=== PATIENT | female | born 1970 | race Caucasian/White ===

== ENCOUNTER 2024-07-22 13:07 | Emergency (ER) | payer BC, SELFPAY ==
--- OUTSIDE RECORDS SUMMARY | 2024-07-22 13:09 | XMS_ITS | Encounter Summary ---
Author Organization [email or web address] [facility] Address [address] [place] [address] Care Team Providers Care Computational Mathematician Name Role Phone Aneesh Lemons MD Primary Care Provider Encounter Details Date Type Department Care Team (Late st Contact Info) Description 10/11/2006 Outpatient Historical HIS N ALIS OPHIR Aneesh Dennis MD [address] [place] [address] Social History Tobacco Use Types Packs/Day Years Used Date Smoking Tobacco: Never Assessed Comments Unknown Sex and Gender Information Value Date Recorded Sex Assigned at Not on file Legal Sex Female 3:10 AM PATHOLOGY SECRETARY/TRANSCRIPTIONIST Gender Identity Not on file Sexual Orientation Not on file documented as of this encounter Plan of Treatment Not on file documented as of this encounter Visit Diagnoses Not on filedocumented in this encounter Care Teams Computational Mathematician Relationship Specialty Start Date End Date Aneesh Lemons MD [address] [place] [address] PCP - General 03/27/08 documented as of this encounter
--- OUTSIDE RECORDS SUMMARY | 2024-07-22 13:09 | XMS_ITS | Encounter Summary ---
Author Organization [facility] Address [address] [place] [address] Care Team Providers Care Public Information Coordinator Name Role Phone Aneesh Lemons MD Primary Care Provider [phone] Encounter Details Date Type Department Care Team (Late st Contact Info) Description 03/27/2008 Inpatient Historical HIS QUAD 4B Armando Dillard MD [address] [facility] [address] [place], [place] [id number] [place] [address] [facility] [address] [place] [address] Social History Tobacco Use Types Packs/Day Years Used Date Smoking Tobacco: Never Assessed Comments No Sex and Gender Information Value Date Recorded Sex Assigned at Not on file Legal Sex Female 3:10 AM BOILER COVERER Gender Identity Not on file Sexual Orientation Not on file documented as of this encounter Plan of Treatment Not on file documented as of this encounter Procedures Procedure Name Priority Date/Time Associated Diagnosis Comments PATHOLOGY Routine 03/28/2008 9:08 AM BOILER COVERER RBC MORPHOLOGY Routine 03/28/2008 5:25 AM BOILER COVERER CBC WITH DIFFERENTIAL Routine 03/28/2008 5:25 AM BOILER COVERER LIPASE Routine 03/27/2008 12:05 PM BOILER COVERER COMPREHENSIVE METABOLIC PANEL Routine 03/27/2008 12:[address] ABDOMEN PELVIS W CONTRAST Routine 03/27/2008 11:40 AM BOILER COVERER URINALYSIS WITH REFLEX CULTURE Routine 03/27/2008 11:20 AM BOILER COVERER CBC WITH DIFFERENTIAL Routine 03/27/2008 10:39 AM BOILER COVERER documented in this encounter Results * PATHOLOGY (03/28/2008 9:08 AM BOILER COVERER) Pathologist [facility] SURGICAL PATHOLOGY [facility] Pathology [address] * [place] [address] fax: [phone] Salvatore Voss MD * Gabriele Dow MD * MD Jazmin Umana MD * Al Logan MD * Jamie Bella MD Name: STEPHANIELUIS FERNANDO Karen Age/Sex: 38/F Attend Dr: Abby Macedo MD Unit#: [id number] Status: DIS IN Location: [facility] M428-1 Re03/27/08 Disch: 03/28/08 Received: 03/28/08 Status: TENZIN Ellison#: [id number] Spec #: [id number] Spec Type: SURGICAL P Subm Dr: Abby Macedo MD FINAL DIAGNOSIS VERMIFORM APPENDIX (APPENDECTOMY): - ACUTE PERIAPPENDICITIS WITH FIBROUS SEROSAL ADHESIONS. - NEGATIVE FOR ACUTE APPENDICITIS. TISSUES: A. - APPENDIX OTHER THAN INCIDENTAL [id number] - APPENDIX CLINICAL INFORMATION: PRE-OP DIAGNOSIS/REASON FOR PROCEDURE: APPENDICITIS/ABDOMI NAL PAIN GROSS DESCRIPTION: The specimen is received in formalin labeled with the patient's name and appendix, and consists of a vermiform appendix measuring 6.3 x 0.9 cm. There is a moderate amount of attached yellow-cronin to hemorrhagic, somewhat indurated mesoappendix present. On cut section, the lumen is noted for hemorrhagic debris. No fecoliths are identified. Electric Meter Reader sections will be submitted in one cassette. am/tw MICROSCOPIC DESCRIPTION: Sections show acute periappendicitis with serosal adhesions. No intraluminal or intramural inflammation is observed. Dictated by: JAMIE BELLA MD Signed <<Signature On File>> JAMIE BELLA MD 03/29/08 END OF REPORT [facility] 03/28/2008 9:08 AM BOILER COVERER 03/28/2008 9:07 AM BOILER COVERER us Abby Macedo MD PATHOLOGY/CYTOLOGY ORDERA BLES Final Result Performing Organization Address City/[facility] de Phone Number INTERFACE SYSTEM Refer to clinic/hospital department [facility] CLIA# [id number] [address] [id number] * RBC MORPHOLOGY (03/28/2008 5:25 AM BOILER COVERER) RBC MORPHOLOGY Normal NORMAL [facility] PLATELET EST. Adequate [facility] 03/28/2008 5:25 AM BOILER COVERER 03/28/2008 5:54 AM BOILER COVERER us Abby Macedo MD HEMATOLOGY ORDERABLES Fin al Result Performing Organization Address [facility] Phone Number INTERFACE SYSTEM Refer to clinic/hospital department [facility] CLIA# [id number] [address] [place] [address] * CBC WITH DIFFERENTIAL (03/28/2008 5:25 AM BOILER COVERER) BANDS 2 0 - 6 % [facility] MONOCYTE 2 0 - 8 % [facility] EOSINOPHILS 0 0 - 6 % [facility] BASOPHILS 0 0 - 1 % [facility] PLATELET EST. Adequate [facility] 03/28/2008 5:25 AM BOILER COVERER 03/28/2008 5:54 AM BOILER COVERER us Abby Macedo MD HEMATOLOGY ORDERABLES Kb chuy Performing Organization Address [facility] de Phone Number INTERFACE SYSTEM Refer to clinic/hospital department [facility] CLIA# [id number] [address] [place] [address] * LIPASE (03/27/2008 12:05 PM BOILER COVERER) LIPASE 24 5 - 51 U/L [facility] 03/27/2008 12:0 5 PM BOILER COVERER 03/27/2008 12:11 PM BOILER COVERER us Parish Gresham MD CHEMISTRY ORDERABLES Final R esult INTERFACE SYSTEM Refer to clinic/hospital department [facility] CLIA# [id number] [address] [place] [address] * (ABNORMAL) COMPREHENSIVE METABOLIC PANEL (03/27/2008 12:05 PM BOILER COVERER) SODIUM 136(L) 137 - 145 mmol/L [facility] POTASSIUM 4.4 3.6 - 5.0 mmol/L [facility] CHLORIDE 105 95 - 110 mmol/L [facility] CO2 26.3 20 - 31 mmol/L [facility] ANION GAP 5 0 - 12 [facility] BUN 9 6 - 20 mg/dL [facility] CREATININE 0.7 0.6 - 1.3 mg/dL [facility] GLUCOSE 94 70 - 110 mg/dL [facility] GFR GT 60 mL/min [facility] GFR, GT 60 mL/min [facility] Comment: *eGFR Units = mL/min/1.73 sq. meters Chronic Kidney Disease = <60 Kidney Failure = <15 *eGFR = Estimated Glomerular Filtration Rate Please note: - This estimated GFR is not recommended for use in patients less than 18 years or greater than 70 years old. - The eGFR is not intended for use in the calculation of drug dosage. - Interpretation of this data for patients of has not been established. TOTAL PROTEIN 7.0 6.2 - 8.3 gm/dL [facility] ALBUMIN 4.3 3.5 - 5.0 gm/dL [facility] CALCIUM 9.0 8.2 - 10.3 mg/dL [facility] BILIRUBIN TOTAL 0.4 0.0 - 1.5 mg/dL [facility] ALKALINE PHOSPHATASE 48 34 - 132 U/L [facility] AST 17 3 - 45 U/L [facility] ALT 15 7 - 40 U/L [facility] HEMOLYSIS None No Hemo [facility] LIPEMIA None No Lipemia [facility] ICTERUS None No Icteric [facility] 03/27/2008 12:0 5 PM BOILER COVERER 03/27/2008 12:11 PM BOILER COVERER Parish Gresham MD CHEMISTRY ORDERABLES Final R esult INTERFACE SYSTEM Refer to clinic/hospital department [facility] CLIA# [id number] [address] [place] [address] * CT ABDOMEN PELVIS W CONTRAST (03/27/2008 11:40 AM BOILER COVERER) Anatomical Region Laterality Modality Abdomen Other 03/27/2008 11:4 0 AM BOILER COVERER Narrative 03/27/2008 11:40 AM BOILER COVERER Name: STEPHANIELUIS FERNANDO Phys: GEOFF IYER/Radha GUTIERREZ : 1970 Age: 38 Sex: F Acct: [id number] [place] [facility] [place]am Date: 03/27/2008 Exam Time: 1135 Status: REG ER Radiology No: Unit No: [id number] Patient Phone No: [phone] EXAMS: [id number] APPY PROT/CT ABD/PEL WI CONTR Clinical Data: ABDOMINAL PAIN/SENT BY CT ABDOMEN AND PELVIS Scans were obtained from the lower thorax through the lower pelvis. The patient was given intravenous and rectal contrast. There is stranding seen adjacent to the distal aspect of the appendix. There also is some mild distention measuring 8.5 mm. Findings are suggestive of early acute appendicitis. The liver, pancreas, and spleen are normal. The kidneys are functioning bilaterally without mass or obstruction. Identified is a structure in the left pelvis measuring 3.5 x 2.3 cm, most likely representing a left ovary. Clinical correlation. There appears to be an associated partially collapsed cyst. If the left ovary has been removed, the exact etiology of the soft tissue structures is unclear and warrants further investigation. REPORT SIGNED IN OTHER VENDOR SYSTEM 03/27/2008 Reported By: ABBY LAIRD M.D. CC: Radha TELLEZ RNCNS Dictated Date/Time: Transcribed Date/Time: 03/27/2008 (2943) Civil Celebrant: YOU BARAKAT Printed Date/Time: 03/27/2008 (8727) PAGE 1 Signed Report Procedure Note Provider, Historical - 03/27/2008 Name: LUIS FERNANDO BROWN Phys: GEOFF RN/ALEXANDER GUTIERREZ : 1970 Age: 38Sex: F Acct: [id number] [place] [facility] [place]am Date: 03/27/2008 Exam Time:1135 Status: REG ER Radiology No: Unit No: [id number] Patient Phone No: [phone] EXAMS: [id number] APPY PROT/CT ABD/PEL WI CONTR Clinical Data: ABDOMINAL PAIN/SENT BY CT ABDOMEN AND PELVIS Scans were obtained from the lower thorax through the lowerpelvis. The patient was given intravenous and rectal contrast. There is stranding seen adjacent to the distal aspect of theappendix. There also is some mild distention measuring 8.5 mm. Findingsare suggestive of early acute appendicitis. The liver, pancreas, and spleen are normal. The kidneys are functioning bilaterally without mass orobstruction. Identified is a structure in the left pelvis measuring 3.5 x 2.3cm, most likely representing a left ovary. Clinical correlation.There appears to be an associated partially collapsed cyst. If the left ovary has been removed, the exact etiology of thesoft tissue structures is unclear and warrants furtherinvestigation. REPORT SIGNED IN OTHER VENDOR SYSTEM 03/27/2008 Reported By: ABBY LAIRD M.D. CC: Radha TELLEZ RNCNS Dictated Date/Time: Transcribed Date/Time: 03/27/2008 (8573) Civil Celebrant: YOU BARAKAT Printed Date/Time: 03/27/2008 (7932) PAGE 1 Signed Report Radha Tellez CT ORDERABLES Final Result * (ABNORMAL) URINALYSIS WITH REFLEX CULTURE (03/27/2008 11:20 AM BOILER COVERER) COLOR UA Yellow [facility] CLARITY UA Clear [facility] SPECIFIC GRAVITY UA 1.018 1.001 - 1.035 [facility] PH UA 5.0 4.6 - 8.0 [facility] PROTEIN UA Negative Negative mg/dL [facility] GLUCOSE UA Negative Negative mg/dL [facility] KETONES UA Negative Negative mg/dL [facility] BILIRUBIN UA Negative Negative mg/dL [facility] BLOOD UA Negative Negative mg/dL [facility] UROBILINOGEN UA Normal 0.1 - 1.0 mg/dL [facility] NITRITE UA Negative Negative [facility] LEUKOCYTE ESTERASE UA Negative Negative [facility] RBC UA 0-3 0 - 2 /HPF [facility] WBC UA 0-3 0 - 6 /HPF [facility] EPITHELIAL CELLS, URINE 0-5 /HPF [facility] MUCOUS, URINE Rare [facility] BACTERIA UA 2+(A) Neg [facility] URINE CULTURE ORDER No [facility] 03/27/2008 11:2 0 AM BOILER COVERER 03/27/2008 11:36 AM BOILER COVERER Parish Gresham MD URINE ORDERABLES Final Resul t INTERFACE SYSTEM Refer to clinic/hospital department [facility] CLIA# [id number] [address] [facility] [place] [address] * CBC WITH DIFFERENTIAL (03/27/2008 10:39 AM BOILER COVERER) WBC 5.8 4.5 - 11.0 10E3 [facility] RBC 4.94 3.80 - 5.10 10E6 [facility] HEMOGLOBIN 15.1 11.7 - 15.5 g/dL [facility] HEMATOCRIT 42.4 35.0 - 45.0 % [facility] MCV 86 81 - 101 fL [facility] MCH 30.6 27 - 34 pG [facility] MCHC 35.6 32 - 36 g/dL [facility] RDW-STDEV 38.6 37.0 - 54.0 fl [facility] RDW CV 12.5 11 - 16 CV [facility] PLATELETS 248 150 - 450 10E3 [facility] MPV 10.4 8.6 - 11.7 fl [facility] NEUTROPHIL 59 36 - 78 % [facility] LYMPHOCYTES 30 24 - 44 % [facility] MONOCYTE 8 0 - 8 % [facility] EOSINOPHILS 2 0 - 6 % [facility] BASOPHILS 1 0 - 1 % [facility] NEUTROPHIL ABSOLUTE 3.40 1.8 - 7.7 10E3 [facility] LYMPHOCYTE ABSOLUTE 1.74 1.0 - 4.8 E3 [facility] MONOCYTE ABSOLUTE 0.45 0.0 - 0.[address] [place] [address] LAB BASOPHILS ABSOLUTE 0.13 0.0 - 0.7 E3 [facility] EOSINOPHIL ABSOLUTE 0.03 0.0 - 0.2 10E3 [facility] 03/27/2008 10:3 9 AM BOILER COVERER 03/27/2008 10:41 AM BOILER COVERER us Parish Gresham MD HEMATOLOGY ORDERABLES Final Result INTERFACE SYSTEM Refer to clinic/hospital department [facility] CLIA# [id number] [address] [place] [address] documented in this encounter Visit Diagnoses Not on filedocumented in this encounter Care Teams Public Information Coordinator Relationship Specialty Start Date End Date Aneesh Lemons MD [address] [place] [id number] PCP - General 03/27/08 documented as of this encounter
--- OUTSIDE RECORDS SUMMARY | 2024-07-22 13:09 | XMS_ITS | Encounter Summary ---
Author Organization [email or web address] [facility] Address [address] [place] [address] Care Team Providers Care Apprentice Architect Name Role Phone Aneesh Lemons MD Primary Care Provider [phone] Encounter Details Date Type Department Care Team (Late st Contact Info) Description 12/27/2006 Outpatient Historical HIS N ALIS [place] Aneesh Dennis MD [address] [place] [address] Social History Tobacco Use Types Packs/Day Years Used Date Smoking Tobacco: Never Assessed Comments Unknown Sex and Gender Information Value Date Recorded Sex Assigned at Not on file Legal Sex Female 3:10 AM SOFTWARE PERFORMANCE ENGINEER Gender Identity Not on file Sexual Orientation Not on file documented as of this encounter Plan of Treatment Not on file documented as of this encounter Visit Diagnoses Not on filedocumented in this encounter Care Teams Apprentice Architect Relationship Specialty Start Date End Date Aneesh Lemons MD [address] [place] [address] PCP - General 03/27/08 documented as of this encounter
--- OUTSIDE RECORDS SUMMARY | 2024-07-22 13:09 | XMS_ITS | Clinical Summary ---
Author Organization [facility] Address [address] [place] [address] Phone Care Team Providers Care Hyperbaric Nurse Name Role Phone Aneesh Lemons MD Primary Care Provider [phone] Allergies Active Allergy Reactions Criticality Noted Date Comments Meperidine Nausea and Vomiting Low 03/27/2008 Medications omega-3 fatty acids-fish oil 300-1,000 mg Capsule Take by mouth daily. Active ergocalciferol, vitamin D2, (VITAMIN D ORAL) Take by mouth. Activ e Lactobac no.41/Bifidobac t no.7 (PROBIOTIC-10 ORAL) Take by mouth. Activ e diphenhydramine HCl (BENADRYL ALLERGY ORAL) Take by mouth. A ctive phentermine (ADIPEX P) 37.5 mg tabletIndicatio ns:Weight gain TAKE 1 TABLET BY MOUTH ONCE DAILY BEFORE BREAKFAST 30 Tablet 5 1 Active escitalopram oxalate (LEXAPRO) 10 mg tablet TAKE ONE TABLET BY MOUTH ONCE DAILY 30 Tablet 5 1 Active metoprolol succinate (TOPROL XL) 50 mg Extended Release 24 hour tablet Take 1 tablet by mouth once daily 90 Tablet 1 Active Active Problems Problem Noted Date Diagnosed Date HTN (hypertension), benign 09/19/2019 Major depression 07/31/2017 MELY (obstructive sleep apnea) 10/07/2009 Family History Medical History Relation Name Comments Healthy Brother Diabetes Father Hypertension Father Other Mother Other Sister 1 Relation Name Status Comments Brother Father Alive Mother Alive Sister 1 Alive Sister 2 Alive Social History Tobacco Use Types Packs/Day Years Used Date Smoking Tobacco: Never Alcohol Use Standard Drinks/Week Comments No 0 (1 standard drink = 0.6 oz pur e alcohol) Comments No Sex and Gender Information Value Date Recorded Sex Assigned at Not on file Legal Sex Female 3:10 AM SPECIAL PROCEDURE TECHNOLOGIST Gender Identity Not on file Sexual Orientation Not on file Last Filed Vital Signs Vital Sign Reading Time Taken Comments Blood Pressure 132/100 09/19/2019 11:23 AM CDT Pulse 85 09/19/2019 11:23 AM CDT Temperature 37.3 C (99.1 F) 09/19/2019 11:23 AM CDT Respiratory Rate 16 09/19/2019 11:23 AM CDT Oxygen Saturation 96% 09/19/2019 11:23 AM CDT Inhaled Oxygen Concentration - - Weight 105.2 kg (232 lb) 09/19/2019 11:23 AM CDT Height 154.9 cm (5' 1) 09/19/2019 11:23 AM CDT Body Mass Index 43.84 09/19/2019 11:23 AM CDT Plan of Treatment Health Maintenance Due Date Last Done Comments DTAP/TDAP/TD VACCINES (1 - Tdap) 02/23/1988 HEPATITIS B VACCINES (1 of 3 - 19+ 3-dose series) 02/23/1988 COLORECTAL SCREENING 2014 Colorectal Cancer Screening 2014 FIT-DNA Q 3 years 2014 FIT/FOBT Q 1 year 2014 Flex Sig/CT Colonography Q 5 years 2014 ZOSTER VACCINE (1 of 2) 2019 INFLUENZA VACCINE (#1) 2023 02/05/2018 PNEUMOCOCCAL VACCINE 0-49 YEARS Aged Out No longer eligible based on patient's age to complete this topic Care Teams Hyperbaric Nurse Relationship Specialty Start Date End Date Aneesh Lemons MD [address] [place] [id number] PCP - General 03/27/08
--- OUTSIDE RECORDS SUMMARY | 2024-07-22 13:10 | XMS_ITS | Encounter Summary ---
Author Organization [facility] [place] [place] Address [address] [place] [address] Care Team Providers Care Timber Skidder Name Role Phone Aneesh Lemons MD Primary Care Provider [phone] Reason for Visit * Reason Comments Medication Refill Encounter Details Date Type Department Care Team (Late st Contact Info) Description 06/22/2017 Refill [facility] - [facility] [address] [place] [address] Aneesh Lemons MD [address] [place] [address] Social History Tobacco Use Types Packs/Day Years Used Date Smoking Tobacco: Never Alcohol Use Standard Drinks/Week Comments No 0 (1 standard drink = 0.6 oz pur e alcohol) Comments No Sex and Gender Information Value Date Recorded Sex Assigned at Not on file Legal Sex Female 3:10 AM DIRECT SUPPORT STAFF Gender Identity Not on file Sexual Orientation Not on file documented as of this encounter Plan of Treatment Not on file documented as of this encounter Visit Diagnoses Not on filedocumented in this encounter Care Teams Timber Skidder Relationship Specialty [place] [address] [place] [address] PCP - General 03/27/08 documented as of this encounter
--- OUTSIDE RECORDS SUMMARY | 2024-07-22 13:10 | XMS_ITS | Encounter Summary ---
Author Organization [facility] Address [address] [place] [address] Care Team Providers Care Dredge Master Name Role Phone Aneesh Lemons MD Primary Care Provider [phone] Encounter Details Date Type Department Care Team (Late st Contact Info) Description 10/20/2009 Inpatient Historical [facility] Aneesh Lemons MD [address] [place] [address] Social History Tobacco Use Types Packs/Day Years Used Date Smoking Tobacco: Never Alcohol Use Standard Drinks/Week Comments No 0 (1 standard drink = 0.6 oz pur e alcohol) Comments No Sex and Gender Information Value Date Recorded Sex Assigned at Not on file Legal Sex Female 3:10 AM DRAWING SUPERVISOR Gender Identity Not on file Sexual Orientation Not on file documented as of this encounter Plan of Treatment Not on file documented as of this encounter Visit Diagnoses Not on filedocumented in this encounter Care Teams Dredge Master Relationship Specialty Start Date End Date Aneesh Lemons MD [address] [place] [address] PCP - General 03/27/08 documented as of this encounter
--- OUTSIDE RECORDS SUMMARY | 2024-07-22 13:10 | XMS_ITS | Encounter Summary ---
Author Organization [facility] Address [address] [place] [address] Care Team Providers Care Microeconomics Professor Name Role Phone Aneesh Lemons MD Primary Care Provider Lalita Yeung MD Primary Care Provider [phone] Encounter Details Date Type Department Care Team (Late st Contact Info) Description 08/06/2019 Scanned Document [facility] B[facility]ric Surgery [address] [place] [address] Nathan Tate MD [address] [place] [address] Social History Tobacco Use Types Packs/Day Years Used Date Smoking Tobacco: Never Assessed Sex and Gender Information Value Date Recorded Sex Assigned at Not on file Gender Identity Not on file Sexual Orientation Not on file documented as of this encounter Plan of Treatment Upcoming Encounters Date Type Department Care Team (Late st Contact Info) Description 04/07/2025 8:00 AM DRY CHAIN OPERATOR Office Visit LALITA YEUNG MD [address] [address] Cheryl Das APRN [address] [address] documented as of this encounter Visit Diagnoses Not on filedocumented in this encounter Care Teams Microeconomics Professor Relationship Specialty Start Date End Date Aneesh Lemons MD PCP - General Family Medicine 10/03/19 03/23/23 Lalita Yeung MD [address] [place] [address] PCP - General Hospitalist 03/24/23 documented as of this encounter
--- OUTSIDE RECORDS SUMMARY | 2024-07-22 13:10 | XMS_ITS | Encounter Summary ---
Author Organization [employer] Address [address] [place] [address] Care Team Providers Care Screen Printing Press Operator Name Role Phone Unavailable Primary Care Provider Unavailabl e Encounter Details Date Type Department Care Team (Late st Contact Info) Description 07/16/2024 External Device Data [facility] ABSTRACTION Provider, Abstract NO ADDRESS ON FILE Social History Tobacco Use Types Packs/Day Years Used Date Smoking Tobacco: Never Alcohol Use Standard Drinks/Week Comments No 0 (1 standard drink = 0.6 oz pur e alcohol) Comments Unknown Sex and Gender Information Value Date Recorded Sex Assigned at Not on file Legal Sex Female 1:17 AM PASTEURISER OPERATOR Gender Identity Not on file Sexual Orientation Not on file documented as of this encounter Plan of Treatment Not on file documented as of this encounter Visit Diagnoses Not on filedocumented in this encounter
--- OUTSIDE RECORDS SUMMARY | 2024-07-22 13:10 | XMS_ITS | Encounter Summary ---
Author Organization [employer] Address [address] [place] [address] Care Team Providers Care Building Cleaner Name Role Phone Unavailable Primary Care Provider Unavailabl e Encounter Details Date Type Department Care Team (Late st Contact Info) Description 07/09/2024 External Device Data ST[facility] ABSTRACTION Provider, Abstract NO ADDRESS ON FILE Social History Tobacco Use Types Packs/Day Years Used Date Smoking Tobacco: Never Alcohol Use Standard Drinks/Week Comments No 0 (1 standard drink = 0.6 oz pur e alcohol) Comments Unknown Sex and Gender Information Value Date Recorded Sex Assigned at Not on file Legal Sex Female 1:17 AM EMERGENCY SPECIALIST Gender Identity Not on file Sexual Orientation Not on file documented as of this encounter Plan of Treatment Not on file documented as of this encounter Visit Diagnoses Not on filedocumented in this encounter
--- OUTSIDE RECORDS SUMMARY | 2024-07-22 13:10 | XMS_ITS | Encounter Summary ---
Author Organization [employer] Address [address] [place] [address] Care Team Providers Care Slip Filler Name Role Phone Lalita Yeung MD Primary Care Provider [phone] Encounter Details Date Type Department Care Team (Late Contact Info) Description 03/27/2023 Scanned Document LALITA YEUNG MD [address] [address] [place] [address] Lalita Yeung MD [address] [facility] [address] [place] [address] Social History Tobacco Use Types Packs/Day Years Used Date Smoking Tobacco: Never Smokeless Tobacco: Never Alcohol Use Standard Drinks/Week Comments Never 0 (1 standard drink = 0.6 oz pur e alcohol) AUDIT-C Answer Date Recorded Q1: How often do you have a drink containing alc ohol? Never 10/04/2019 Average Number of Drinks Not on file 020 Frequency of Binge Drinking Not on file 09/06 Sex and Gender Information Value Date Recorded Sex Assigned at Not on file Gender Identity Not on file Sexual Orientation Not on file documented as of this encounter Plan of Treatment Upcoming Encounters Date Type Department Care Team (Late Contact Info) Description 04/07/2025 8:00 AM SOCIAL WORK PROGRAM COORDINATOR Office Visit LALITA YEUNG MD [address] [address] [place] [address] Das, Cheryl T, SPECIMEN ACCESSIONER [address] [place] [address] documented as of this encounter Visit Diagnoses Not on filedocumented in this encounter Care Teams Slip Filler Relationship Specialty Start Date End Date Lalita Yeung MD [address] [place] [address] PCP - General Hospitalist 03/24/23 documented as of this encounter
--- OUTSIDE RECORDS SUMMARY | 2024-07-22 13:10 | XMS_ITS | Encounter Summary ---
Author Organization [facility] Address [address] [place] [address] Care Team Providers Care Respiratory Scientist Name Role Phone Aneesh Lemons MD Primary Care Provider [phone] Lalita Yeung MD Primary Care Provider + [phone] Encounter Details Date Type Department Care Team (Late st Contact Info) Description 11/11/2019 Scanned Document [facility] Bariatric Surgery [address] [place] [address] Nathan Tate MD [address] [place] [address] Social History Tobacco Use Types Packs/Day Years [...] st Contact Info) Description 04/07/2025 8:00 AM ULTRASOUND TECH Office Visit LALITA YEUNG MD [address] [phone] Cheryl Das, RESTRICTIVE PREPARATION OPERATOR [address] [place] [address] documented as of this encounter Visit Diagnoses Not on filedocumented in this encounter Care Teams Respiratory Scientist Relationship Specialty Start Date End Date Aneesh Lemons MD PCP - General Family Medicine 10/03/19 03/23/23 Lalita Yeung MD [address] [place] [address] PCP - General Hospitalist 03/24/23 documented as of this encounter
--- OUTSIDE RECORDS SUMMARY | 2024-07-22 13:10 | XMS_ITS | Encounter Summary ---
Author Organization [employer] Address [address] [place] [address] Care Team Providers Care Agency Service Coordinator Name Role Phone Aneesh Lemons MD Primary Care Provider Lalita Yeung MD Primary Care Provider [phone] Reason for Referral * Consultation (Routine) - Closed Specialty Diagnoses / Procedures Referred By Contsteven t Referred To Contact Bariatrics Diagnoses Obesity, Class III, BMI 40-49.9 (morbid obesity) Procedures Ambulatory referral for Bariatric Authorization Nathan Tate MD [address] [place] [address] Nathan Tate MD [address] [place] [address] Referral ID Status Reason Start Date Expiration Date V isits Requested Visits Authorized [id number] Closed Specialty Services Required 08/02/2019 08/01/2020 1 1 Encounter Details Date Type Department Care Team (Latest Contact Info) Description 08/02/2019 Transcribe Orders [facility] Bariatric Surgery [address] [place] [address] Nathan Tate MD [address] [place] [address] Obesity, Class III, BMI 40-49.9 (morbid obesity) (Primary Dx) Social History Tobacco Use Types Packs/Day Years Used Date Smoking Tobacco: Never Assessed Sex and Gender Information Value Date Recorded Sex Assigned at Not on file Gender Identity Not on file Sexual Orientation Not on file documented as of this encounter Plan of Treatment Upcoming Encounters Date Type Department Care Team (Late st Contact Info) Description 04/07/2025 8:00 AM CUTLERY GRINDER Office Visit LALITA YEUNG MD [address] [place] [address] Cheryl Das, COLOR ROOM ATTENDANT [address] [place] [address] documented as of this encounter Visit Diagnoses Diagnosis Obesity, Class III, BMI 40-49.9 (morbid obesity)- Primary documented in this encounter Care Teams Agency Service Coordinator Relationship Specialty Start Date End Date Aneesh Lemons MD PCP - General Family Medicine 10/03/19 03/23/23 Lalita Yeung MD [address] [place] [address] PCP - General Hospitalist 03/24/23 documented as of this encounter
--- OUTSIDE RECORDS SUMMARY | 2024-07-22 13:10 | XMS_ITS | Clinical Summary ---
Author Organization [facility] Address [address] [place] [address] Phone Care Team Providers Care Senior Living Advisor Name Role Phone Unavailable Primary Care Provider Unavailabl e Allergies Active Allergy Reactions Criticality Noted Date Comments Meperidine Nausea and Vomiting Low 03/27/2008 Medications omega-3 fatty acids-fish oil 300-1,000 mg Capsule Take by mouth daily. 9 Active Lactobac no.41/Bifidobac t no.7 (PROBIOTIC-10 ORAL) Take by mouth. 9 Active phentermine (ADIPEX P) 37.5 mg tabletIndicatio ns:Weight gain TAKE 1 TABLET BY MOUTH ONCE DAILY BEFORE BREAKFAST 30 Tablet 5 2 Active escitalopram oxalate (LEXAPRO) 10 mg tabletIndicatio ns:Situational depression Take 1 tablet by mouth once daily 30 Tablet 2 Active escitalopram oxalate (LEXAPRO) 10 mg tablet Take 1 Tablet (10 mg) by mouth daily. 30 Tablet 8 2 Active cloNIDine HCL (CATAPRES) 0.1 mg tabletIndicatio ns:HTN (hypertension), benign TAKE 1 TABLET BY MOUTH THREE TIMES DAILY 3 Tablet 3 Active metoprolol succinate (TOPROL XL) 200 mg Extended Release 24 hour tabletIndicatio ns:HTN (hypertension), benign Take 1 tablet by mouth once daily 30 Tablet 3 Active escitalopram oxalate (LEXAPRO) 10 mg tablet take one tablet by mouth every day 30 Tablet 3 Active Active Problems Problem Noted Date Diagnosed Date HTN (hypertension), benign 09/19/2019 Major depression 07/31/2017 MELY (obstructive sleep apnea) 10/07/2009 Encounters Date Type Department Care Team Description 07/16/2024 External Device Data STL ABSTRACTION Provider, Abstract 07/16/2024 External Device Data STL ABSTRACTION Provider, Abstract 07/13/2024 External Device Data STL ABSTRACTION Provider, Abstract 07/12/2024 External Device Data STL ABSTRACTION Provider, Abstract 07/09/2024 External Device Data STL ABSTRACTION Provider, Abstract 06/25/2024 External Device Data STL ABSTRACTION Provider, Abstract 05/29/2024 External Device Data STL ABSTRACTION Provider, Abstract 05/28/2024 External Device Data STL ABSTRACTION Provider, Abstract 05/14/2024 External Device Data STL ABSTRACTION Provider, Abstract from Last 3 Months Family History Medical History Relation Name Comments Healthy Brother Diabetes Father Hypertension Father Other Mother Other Sister 1 Relation Name Status Comments Brother Father Alive Mother Alive Sister 1 Alive Sister 2 Alive Social History Tobacco Use Types Packs/Day Years Used Date Smoking Tobacco: Never Tobacco Cessation:Counseling Given: No Alcohol Use Standard Drinks/Week Comments No 0 (1 standard drink = 0.6 oz pur e alcohol) Comments Unknown Sex and Gender Information Value Date Recorded Sex Assigned at Not on file Legal Sex Female 1:17 AM RN MATERNAL CHILD Gender Identity Not on file Sexual Orientation Not on file Last Filed Vital Signs Vital Sign Reading Time Taken Comments Blood Pressure 138/80 01/07/2022 8:45 AM CDT Pulse 96 01/07/2022 8:32 AM CDT Temperature 36.4 C (97.5 F) 01/07/2022 8:32 AM CDT Respiratory Rate 16 01/07/2022 8:32 AM CDT Oxygen Saturation 99% 01/07/2022 8:32 AM CDT Inhaled Oxygen Concentration - - Weight 112.2 kg (247 lb 6.4 oz) 01/07/2022 8:32 AM CDT Height 154.9 cm (5' 1) 01/07/2022 8:32 AM CDT Body Mass Index 46.75 01/07/2022 8:32 AM CDT Plan of Treatment Health Maintenance [...]
--- OUTSIDE RECORDS SUMMARY | 2024-07-22 13:10 | XMS_ITS | Encounter Summary ---
Author Organization [facility] Address [address] [place] [address] Care Team Providers Care Contract Administrator Name Role Phone Aneesh Lemons MD Primary Care Provider [phone] Encounter Details Date Type Department Care Team (Late st Contact Info) Description 05/14/2007 Outpatient Historical [facility] Aneesh Dennis MD [address] [place] [address] Social History Tobacco Use Types Packs/Day Years Used Date Smoking Tobacco: Never Assessed Comments Unknown Sex and Gender Information Value Date Recorded Sex Assigned at Not on file Legal Sex Female 3:10 AM ENVIRONMENTAL SERVICES DIRECTOR Gender Identity Not on file Sexual Orientation Not on file documented as of this encounter Plan of Treatment Not on file documented as of this encounter Visit Diagnoses Not on filedocumented in this encounter Care Teams Contract Administrator Relationship Specialty Start Date End Date Aneesh Lemons MD [address] [place] [address] PCP - General 03/27/08 documented as of this encounter
--- OUTSIDE RECORDS SUMMARY | 2024-07-22 13:10 | XMS_ITS | Encounter Summary ---
Author Organization [facility] Address [address] [place] [address] Care Team Providers Care Newspaper Clipper Name Role Phone Aneesh Lemons MD Primary Care Provider [phone] Reason for Referral * Radiology Services (Routine) - Closed Specialty Diagnoses / Procedures Referred By Contac t Referred To Contact Radiology Diagnoses Breast lump Procedures MAMMO BREAST US LEFT LTD Aneesh Lemons MD [address] [place] [address] Phone: tel: fax: [address] [address] Phone: tel: fax: Referral ID Status Reason Start Date Expiration Date Visits Re quested Visits Authorized [id number] Closed 06/26/2018 07/27/2019 1 1 GENCY RESPONSE COORDINATOR Encounter Details Date Type Department Care Team (Late st Contact Info) Description 06/26/2018 Ancillary Orders [address] [address] Aneesh Lemons MD [address] [place] [address] Breast lump Social History Tobacco Use Types Packs/Day Years Used Date Smoking Tobacco: Never Alcohol Use Standard Drinks/Week Comments No 0 (1 standard drink = 0.6 oz pur e alcohol) Comments No Sex and Gender Information Value Date Recorded Sex Assigned at Not on file Legal Sex Female 3:10 AM EMERGENCY RESPONSE COORDINATOR Gender Identity Not on file Sexual Orientation Not on file documented as of this encounter Plan of Treatment Not on file documented as of this encounter Results * (ABNORMAL) MAMMO BREAST US LEFT LTD (06/26/2018 10:43 AM EMERGENCY RESPONSE COORDINATOR) Anatomical Region Laterality Modality Left Ultrasound 06/26/2018 10:4 3 AM EMERGENCY RESPONSE COORDINATOR Impressions 06/26/2018 11:21 AM EMERGENCY RESPONSE COORDINATOR IMPRESSION: 1. Predominantly hyperechoic palpable 1.4 cm mass in the 9:00 position of the left breast 10 cm from the nipple likely represents a lipoma or contusion/fat necrosis and is probably benign. 2. Circumscribed hypoechoic 7 mm mass in the 9:00 position of the left breast 5 cm from the nipple likely represents a complicated cyst or fibroadenoma and is probably benign. 3. The patient was offered short interval follow-up or percutaneous biopsy. She prefers follow-up. This will be performed in 3 months. 4. The breasts are heterogeneously dense, which may obscure small masses. Your mammogram indicates that you have dense breast tissue. Dense breast tissue is common and is found in more than fifty percent (50%) of women and is not abnormal. However, dense breast tissue may make it more difficult to detect breast cancer and may be associated with an increased risk of breast cancer. This information is being provided to raise your awareness and to encourage you and your health care provider to discuss this and other breast cancer risk factors. Together, you and your health care provider can decide if additional screening options may be right for you. A report of your results was sent to your health care provider. Final Assessment: BIRADS 3: PROBABLY BENIGN Breast Density: C Recommendation: Follow-up targeted ultrasound of the left breast in 3 months Recall Interval: 3 months The patient was given these results and my recommendations prior to leaving [facility]. She will also receive a letter. Thank you for allowing us to participate in the care of your patient. Narrative 06/26/2018 11:21 AM EMERGENCY RESPONSE COORDINATOR PROCEDURE: MAMMO DIAG BILAT 3D KEMI W OR WO CAD, MAMMO BREAST US LEFT LTD DATE: 06/26/2018 9:12 AM CLINICAL HISTORY: 48-year-old female presents for evaluation of a lump she has been feeling in her left breast. She denies any bruising or injury. Her father had melanoma. She states she has had a previous formal risk assessment. This is her first mammogram. She had reduction mammoplasty in the past. COMPARISONS: None BILATERAL DIAGNOSTIC MAMMOGRAM DIGITAL WITH 3D TOMOSYNTHESIS: Multiple view digital mammograms were performed of both breasts including 2-D and 3-D (tomosynthesis) images in the CC and MLO projections. ICAD was utilized in the interpretation of this exam. The composition of the breasts is heterogeneously dense. Postsurgical changes from reduction mammoplasty are present bilaterally with associated architectural distortion. There is a circumscribed oval mass measuring 9 mm in diameter in the medial aspect of the left breast 5 cm from the nipple. Only fatty tissue is present in the area of palpable concern in the medial breast. No suspicious microcalcifications are present. LIMITED LEFT BREAST ULTRASOUND: Targeted ultrasound is performed in the area of palpable concern and in the area of mammographic concern in the medial aspect of the left breast. In the area of palpable concern in the 9:00 position 10 cm from the nipple there is a predominantly hyperechoic oval mass measuring 1.4 x 0.4 x 1.1 cm in size. There are internal hypoechoic components. In the 9:00 position 5 cm from the nipple in the area of mammographic concern there is an oval hypoechoic mass with internal echoes measuring 7 x 4 x 6 mm in size. There is no internal blood flow. us Aneesh Lemons MD MAMMO ORDERABLES Final Result documented in this encounter Visit Diagnoses Diagnosis Breast lump Lump or mass in breast Breast lump Lump or mass in breast documented in this encounter Care Teams Newspaper Clipper Relationship Specialty Start Date End Date Aneesh Lemons MD [address] [place] [address] PCP - General 03/27/08 documented as of this encounter
--- OUTSIDE RECORDS SUMMARY | 2024-07-22 13:10 | XMS_ITS | Encounter Summary ---
Author Organization [employer] [facility] Address [address] [place] [address] Care Team Providers Care Statement Clerk Name Role Phone Aneesh Lemons MD Primary Care Provider [phone] Reason for Visit * Reason Onset Date Comments Medication Refill 02/26/2019 Encounter Details Date Type Department Care Team (Late st Contact Info) Description 02/26/2019 Refill [facility] - [facility] [address] [place] [address] Aneesh Lemons MD [address] [place] [address] Weight gain Social History Tobacco Use Types Packs/Day Years Used Date Smoking Tobacco: Never Alcohol Use Standard Drinks/Week Comments No 0 (1 standard drink = 0.6 oz pur e alcohol) Comments No Sex and Gender Information Value Date Recorded Sex Assigned at Not on file Legal Sex Female 3:10 AM REAL ESTATE RECRUITER Gender Identity Not on file Sexual Orientation Not on file documented as of this encounter Plan of Treatment Not on file documented as of this encounter Visit Diagnoses Diagnosis Weight gain Abnormal weight gain documented in this encounter Care Teams Statement Clerk Relationship Specialty Start Date End Date Aneesh Lemons MD [address] [place] [address] PCP - General 03/27/08 documented as of this encounter
--- OUTSIDE RECORDS SUMMARY | 2024-07-22 13:10 | XMS_ITS | Encounter Summary ---
Author Organization [employer] Address [address] [place] [address] Care Team Providers Care Plastic Top Assembler Name Role Phone Unavailable Primary Care Provider Unavailabl e Encounter Details Date Type Department Care Team (Late st Contact Info) Description 07/13/2024 External Device Data STL ABSTRACTION Provider, Abstract NO ADDRESS ON FILE Social History Tobacco Use Types Packs/Day Years Used Date Smoking Tobacco: Never Alcohol Use Standard Drinks/Week Comments No 0 (1 standard drink = 0.6 oz pur e alcohol) Comments Unknown Sex and Gender Information Value Date Recorded Sex Assigned at Not on file Legal Sex Female 1:17 AM RETAIL SALES CONSULTANT Gender Identity Not on file Sexual Orientation Not on file documented as of this encounter Plan of Treatment Not on file documented as of this encounter Visit Diagnoses Not on filedocumented in this encounter
--- OUTSIDE RECORDS SUMMARY | 2024-07-22 13:10 | XMS_ITS | Encounter Summary ---
Author Organization [employer] Address [address] [place] [address] Care Team Providers Care Data Center Manager Name Role Phone Unavailable Primary Care Provider [...] on file Legal Sex Female 1:17 AM LEAD CASTER HELPER Gender Identity Not on file Sexual Orientation Not on file documented as of this encounter Plan of Treatment Not on file documented as of this encounter Visit Diagnoses Not on filedocumented in this encounter
--- OUTSIDE RECORDS SUMMARY | 2024-07-22 13:10 | XMS_ITS | Encounter Summary ---
Author Organization [facility] Address [address] [place] [address] Care Team Providers Care Data Center Operator Name Role Phone Aneesh Lemons MD Primary Care Provider Lalita Yeung MD Primary Care Provider [phone] Encounter Details Date Type Department Care Team (Late st Contact Info) Description 10/08/2019 Scanned Document [email or web address] Bariatric Surgery [address] [place] [address] Nathan Tate MD [address] [place] [address] Social History Tobacco Use Types Packs/Day Years [...] st Contact Info) Description 04/07/2025 8:00 AM BYPRODUCTS MAKER Office Visit LALITA YEUNG MD [address] [phone] Cheryl Das, DUPLICATING MACHINE SERVICER [address] [place] [address] documented as of this encounter Visit Diagnoses Not on filedocumented in this encounter Care Teams Data Center Operator Relationship Specialty Start Date End Date Aneesh Lemons MD PCP - General Family Medicine 10/03/19 03/23/23 Laltia Yeung MD [address] [place] [address] PCP - General Hospitalist 03/24/23 documented as of this encounter
--- OUTSIDE RECORDS SUMMARY | 2024-07-22 13:10 | XMS_ITS | Clinical Summary ---
Author Organization [employer] Address [address] [place] [address] Care Team Providers Care Regulatory Specialist Name Role Phone Lalita Yeung MD Primary Care Provider + [phone] Allergies Active Allergy Reactions Criticality Noted Date Comments Meperidine GI Intolerance 10/04/2019 Medications Medication Sig Dispensed Refills Start Date End Date Status VITAMIN D PO Take by mouth daily. Active escitalopram (Lexapro) 10 MG tablet Take 1 tablet (10 mg) by mouth daily. 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 Depression with anxiety 03/24/2023 HTN (hypertension), benign 09/19/2019 MELY (obstructive sleep apnea) 10/07/2009 Anxiety History of obstructive sleep apnea History of weight loss surgery Snoring Resolved Problems Problem Noted Date Diagnosed Date Resolved Date Obesity, Class III, 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 obesity) 10/08/2019 03/24/2023 Major depression 07/31/2017 03/24/2023 Encounters Date Type Department Care Team Description 05/15/2024 9:49 AM ANALYSIS MANAGER - 05/15/2024 11:59 PM ANALYSIS MANAGER Hospital Encounter HPI [facility] [address] [place] [address] Cheryl Das APRN Screening for osteoporosis; S/P biliopancreatic diversion with duodenal switch; Postoperative intestinal malabsorption Discharge Disposition: Home or Self-Care 05/15/2024 Travel from Last 3 Months Family History Medical History Relation Name Comments Diabetes Father Heart disease Father Hyperlipidemia Father Hypertension Father Obesity Father Stroke Father Diabetes Mother Gallbladder disease Mother Heart disease Mother Hyperlipidemia Mother Hypertension Mother Obesity Mother Gallbladder disease Sister Relation Name Status Comments Father Mother Sister Social History Tobacco Use Types Packs/Day Years Used Date Smoking Tobacco: Never Smokeless Tobacco: Never Tobacco Cessation:Counseling Given: Not Answered Alcohol Use Standard Drinks/Week Comments Never 0 [...] Sign Reading Time Taken Comments Blood Pressure 138/70 04/01/2024 7:47 AM ANALYSIS MANAGER Pulse 86 04/01/2024 7:47 AM ANALYSIS MANAGER Temperature 36.9 C (98.5 F) 04/01/2024 7:47 AM ANALYSIS MANAGER Respiratory Rate 17 10/09/2023 2:17 PM CDT Oxygen Saturation 98% 04/01/2024 7:47 AM ANALYSIS MANAGER Inhaled Oxygen Concentration - - Weight 68.5 kg (151 lb) 04/01/2024 7:47 AM ANALYSIS MANAGER Height 154.9 cm (5' 0.98) 04/01/2024 7:47 AM CS T Body Mass Index 28.55 04/01/2024 7:47 AM ANALYSIS MANAGER Plan of Treatment Upcoming Encounters Date Type Department Care Team (Late st Contact Info) Description 04/07/2025 8:00 AM ANALYSIS MANAGER Office Visit LALITA YEUNG MD [address] [place] [phone] Cheryl Das APRN [address] [place] [id number] Health Maintenance Due Date Last Done Comments Colonoscopy 1969 Mammogram 1969 Pap Smear Age 21+ 1990 Influenza Vaccine (#1) 2024 Pneumococcal Vaccine: Pediat rics (0-5 Years) and At-Risk Patients (6-64 Years) Aged Out No longer eligible b ased on patient's age to complete this topic Procedures Procedure Name Priority Date/Time Associated Diagnosis Comments BONE DENSITOMETRY AXIAL SKELETON 10875 Routine 05/15/2024 10:05 AM ANALYSIS MANAGER Screening for osteoporosis S/P biliopancreatic diversion with duodenal switch Postoperative intestinal malabsorption from Last 3 Months Results * Bone density - axial skeleton (05/15/2024 10:05 AM ANALYSIS MANAGER) Anatomical Region Laterality Modality Wrist, Hip, L-spine Computed Jame ography 05/15/2024 9:49 AM ANALYSIS MANAGER Impressions 05/15/2024 1:07 PM ANALYSIS MANAGER Normal based on BMD. World Health Organization criteria for BMD impression classify patients as: - Normal (T-score at or above -1.0). - Osteopenia (T-score between -1.0 and -2.5). - Osteoporosis (T-score at or below -2.5). Per the Bone Health and Osteoporosis Foundation the FRAX tool is most useful in patients with low femoral neck bone mineral density (osteopenia). FRAX is calculated per request. RECOMMENDATIONS: 1. All patients should optimize their calcium and vitamin D intake. 2. Consider FDA-approved medical therapies in postmenopausal women and men aged 50 years and older, based on the following: - A hip or vertebral (clinical or morphometric) fracture. - T-score less than or equal to -2.5 at the femoral neck or spine after appropriate evaluation to exclude secondary causes. - Low bone density (T-score between -1.0 and -2.5 at the femoral neck or spine) and a 10-year probability of a hip fracture greater than or equal to 3% or a 10-year probability of a major osteoporosis-related fracture greater than or equal to 20% based on FRAX calculation. - Clinician judgment and/or patient preferences may indicate treatment for people with 10-year fracture probabilities above or below these levels. - Further guidance on treatment can be found at the National Osteoporosis Foundation's website bonesource.org. 3. Patients with diagnosis of osteoporosis or at high risk for fracture should have regular bone mineral density tests. For patients eligible for Medicare, routine testing is allowed once every 2 years. The testing frequency can be increased to one year for patients who have rapidly progressing disease, those who are receiving or discontinuing medical therapy to restore bone mass or have additional risk factors. Electronically signed by: Jorge Clayton DO 05/15/2024 01:07 PM ANALYSIS MANAGER RP [facility] 05/15/2024 1:07 PM ANALYSIS MANAGER EXAMINATION: DUAL X-RAY ABSORPTIOMETRY (DXA) FOR BONE MINERAL DENSITY. CLINICAL INDICATION: 54 years old, Female. Postmenopausal. Encounter for screening for osteoporosis. TECHNIQUE: An axial (e.g., hips, spine) and/or appendicular (e.g., radius) exam was performed, as appropriate, using [employer] densitometer. Images are obtained for bone mineral density measurement and are not obtained for diagnostic purposes. [id number] COMPARISON: None. FINDINGS: Scan quality: Good. LUMBAR SPINE (L1-L4): BMD (in g/cm*2): 1.151. T-score: -0.4. Z-score: 0.5. LEFT FEMORAL NECK: BMD (in g/cm*2): 0.981. T-score: -0.4. Z-score: 0.6. LEFT TOTAL HIP: BMD (in g/cm*2): 1.074. T-score: 0.5. Z-score: 1.2. RIGHT FEMORAL NECK: BMD (in g/cm*2): 0.960. T-score: -0.6. Z-score: 0.5. RIGHT TOTAL HIP: BMD (in g/cm*2): 1.023. T-score: 0.1. Z-score: 0.8. FRAX 10-YEAR PROBABILITY OF FRACTURE: 10-year fracture risk is performed using the [employer] FRAX calculator based on patient-reported risk factors. Major osteoporotic fracture: 5.4%. Hip fracture: 0.2%. Procedure Note ForrestJorgeDO - 05/15/2024 EXAMINATION: DUAL X-RAY ABSORPTIOMETRY (DXA) FOR BONE MINERAL DENSITY. CLINICAL INDICATION: 54 years old, Female. Postmenopausal. Encounter forscreening for osteoporosis. TECHNIQUE: An axial (e.g., hips, spine) and/or appendicular (e.g., radius)exam was performed, as appropriate, using [employer] densitometer.Images are obtained for bone mineral density measurement and are notobtained for diagnostic purposes. [id number] COMPARISON: None. FINDINGS: Scan quality: Good. LUMBAR SPINE (L1-L4): BMD (in g/cm*2): 1.151. T-score: -0.4. Z-score: 0.5. LEFT FEMORAL NECK: BMD (in g/cm*2): 0.981. T-score: -0.4. Z-score: 0.6. LEFT TOTAL HIP: BMD (in g/cm*2): 1.074. T-score: 0.5. Z-score: 1.2. RIGHT FEMORAL NECK: BMD (in g/cm*2): 0.960. T-score: -0.6. Z-score: 0.5. RIGHT TOTAL HIP: BMD (in g/cm*2): 1.023. T-score: 0.1. Z-score: 0.8. FRAX 10-YEAR PROBABILITY OF FRACTURE: 10-year fracture risk is performed using the [employer] FRAXcalculator based on patient-reported risk factors. Major osteoporotic fracture: 5.4%. Hip fracture: 0.2%. IMPRESSION: Normal based on BMD. World Health Organization criteria for BMD impression classify patientsas: - Normal (T-score at or above -1.0). - Osteopenia (T-score between -1.0 and -2.5). - Osteoporosis (T-score at or below -2.5). Per the Bone Health and Osteoporosis Foundation the FRAX tool is mostuseful in patients with low femoral neck bone mineral density(osteopenia). FRAX is calculated per request. RECOMMENDATIONS: 1. All patients should optimize their calcium and vitamin D intake. 2. Consider FDA-approved medical therapies in postmenopausal women andmen aged 50 years and older, based on the following: - A hip or vertebral (clinical or morphometric) fracture. - T-score less than or equal to -2.5 at the femoral neck or spine afterappropriate evaluation to exclude secondary causes. - Low bone density (T-score between -1.0 and -2.5 at the femoral neck orspine) and a 10-year probability of a hip fracture greater than or equalto 3% or a 10-year probability of a major osteoporosis-related fracturegreater than or equal to 20% based on FRAX calculation. - Clinician judgment and/or patient preferences may indicate treatment forpeople with 10-year fracture probabilities above or below these levels. - Further guidance on treatment can be found at the National OsteoporosisFoundation's website bonesource.org. 3. Patients with diagnosis of osteoporosis or at high risk for fractureshould have regular bone mineral density tests. For patients eligible forMedicare, routine testing is allowed once every 2 years. The testingfrequency can be increased to one year for patients who have rapidly progressing disease, those who arereceiving or discontinuing medical therapy to restore bone mass or haveadditional risk factors. Electronically signed by: Jorge Clayton DO 05/15/2024 01:07 PM [facility] RPWorkstation: [id number] Cheryl Das APRN IM DXA ORDERABLES from Last 3 Months Care Teams Regulatory Specialist Relationship Specialty Start Date End Date Lalita Yeung MD [address] [place] [address] PCP - General Hospitalist 03/24/23
--- OUTSIDE RECORDS SUMMARY | 2024-07-22 13:10 | XMS_ITS | Encounter Summary ---
Author Organization [employer] Address [address] [place] [address] Care Team Providers Care Car Electronics Installer Name Role Phone Aneesh Lemons MD Primary Care Provider [phone] Encounter Details Date Type Department Care Team (Latest Contact Info) Description 02/18/2008 Outpatient Historical [facility] Aneesh Dennis MD [address] [place] [address] Insomnia, Unspecified; Abnormal Weight Gain; Contact Dermatitis and Other Eczema, due to Unspecified Cause; Acute Sinusitis, Unspecified Social History Tobacco Use Types Packs/Day Years Used Date Smoking Tobacco: Never Assessed Comments Unknown Sex and Gender Information Value Date Recorded Sex Assigned at Not on file Legal Sex Female 3:10 AM OUTSIDE SALES ACCOUNT MANAGER Gender Identity Not on file Sexual Orientation Not on file documented as of this encounter Plan of Treatment Not on file documented as of this encounter Visit Diagnoses Diagnosis Insomnia, unspecified Abnormal weight gain Contact dermatitis and other eczema, due to unspecified cause Acute sinusitis, unspecified documented in this encounter Care Teams Car Electronics Installer Relationship Specialty Start Date End Date Aneesh Lemons MD [address] [place] [address] PCP - General 03/27/08 documented as of this encounter
--- OUTSIDE RECORDS SUMMARY | 2024-07-22 13:10 | XMS_ITS | Encounter Summary ---
Author Organization [employer] Address [address] [place] [address] Care Team Providers Care Server Service Assistant Name Role Phone Lalita Yeung MD Primary Care Provider [phone] Encounter Details Date Type Department Care Team (Late Contact Info) Description 03/27/2023 Scanned Document LALITA YEUNG MD [address] [facility] [address] [place] [address] Lalita Yeung MD [address] [address] [place] [address] Social History Tobacco Use Types [...] (Late Contact Info) Description 04/07/2025 8:00 AM MILLINER HELPER Office Visit LALITA YEUNG MD [address] [address] [place] [address] Das, Cheryl T, ATHLETIC INSTRUCTOR [address] [place] [address] documented as of this encounter Visit Diagnoses Not on filedocumented in this encounter Care Teams Server Service Assistant Relationship Specialty Start Date End Date Lalita Yeung MD [address] [place] [address] PCP - General Hospitalist 03/24/23 documented as of this encounter
--- OUTSIDE RECORDS SUMMARY | 2024-07-22 13:10 | XMS_ITS | Encounter Summary ---
Author Organization [facility] Address [address] [place] [address] Care Team Providers Care System Software Developer Name Role Phone Aneesh Lemons MD Primary Care Provider [phone] Lalita Yeung MD Primary Care Provider [phone] Encounter Details Date Type Department Care Team (Late st Contact Info) Description 01/01/2020 Scanned Document [facility] B[facility]ric Surgery [address] [place] [address] Nathan Tate MD [address] [place] [address] Social History Tobacco Use Types Packs/Day Years [...] st Contact Info) Description 04/07/2025 8:00 AM CANVAS SHOP LABORER Office Visit LALITA YEUNG MD [address] [phone] Cheryl aDs, BAG SEALER [address] [place] [address] documented as of this encounter Visit Diagnoses Not on filedocumented in this encounter Care Teams System Software Developer Relationship Specialty Start Date End Date Aneesh Lemons MD PCP - General Family Medicine 10/03/19 03/23/23 Lalita Yeung MD [address] [place] [address] PCP - General Hospitalist 03/24/23 documented as of this encounter
--- OUTSIDE RECORDS SUMMARY | 2024-07-22 13:10 | XMS_ITS | Encounter Summary ---
Author Organization [employer] [facility] Address [address] [place] [address] Care Team Providers Care Dispatcher Tow Truck Name Role Phone Aneesh Lemons MD Primary Care Provider [phone] Reason for Visit * Reason Onset Date Comments Medication Refill 02/28/2019 Encounter Details Date Type Department Care Team (Late st Contact Info) Description 02/28/2019 Refill [facility] Primary Care - [facility] [address] [place] [address] Aneesh Lemons MD [address] [place] [address] Weight gain Social History Tobacco Use Types Packs/Day Years Used Date Smoking Tobacco: Never Alcohol Use Standard Drinks/Week Comments No 0 (1 standard drink = 0.6 oz pur e alcohol) Comments No Sex and Gender Information Value Date Recorded Sex Assigned at Not on file Legal Sex Female 3:10 AM LEAD NUCLEAR MEDICINE TECHNOLOGIST Gender Identity Not on file Sexual Orientation Not on file documented as of this encounter Plan of Treatment Not on file documented as of this encounter Visit Diagnoses Diagnosis Weight gain Abnormal weight gain documented in this encounter Care Teams Dispatcher Tow Truck Relationship Specialty Start Date End Date Aneesh Lemons MD [address] [place] [address] PCP - General 03/27/08 documented as of this encounter
--- OUTSIDE RECORDS SUMMARY | 2024-07-22 13:10 | XMS_ITS | Encounter Summary ---
Author Organization [facility] Address [address] [place] [address] Care Team Providers Care Sports Photographer Name Role Phone Aneesh Lemons MD Primary Care Provider [phone] Reason for Referral * Radiology Services (Routine) - Closed Specialty Diagnoses / Procedures Referred By Contac t Referred To Contact Radiology Diagnoses Abnormal ultrasound of breast Procedures MAMMO BREAST US LEFT LTD Silvana Ashraf DO [address] [place] [address] Phone: tel: fax: [address] [address] Phone: tel: fax: Referral ID Status Reason Start Date Expiration Date V isits Requested Visits Authorized [id number] Closed CTS to Schedule (AOK) 09/13/2018 10/14/2019 1 1 Encounter Details Date Type Department Care Team (Late st Contact Info) Description 09/13/2018 Ancillary Orders [address] [address] Silvana Ashraf DO [address] [place] [address] Abnormal ultrasound of breast Social History Tobacco Use Types Packs/Day Years Used Date Smoking Tobacco: Never Alcohol Use Standard Drinks/Week Comments No 0 (1 standard drink = 0.6 oz pur e alcohol) Comments No Sex and Gender Information Value Date Recorded Sex Assigned at Not on file Legal Sex Female 3:10 AM RECOVERY ENGINEER Gender Identity Not on file Sexual Orientation Not on file documented as of this encounter Plan of Treatment Not on file documented as of this encounter Results * (ABNORMAL) MAMMO BREAST US LEFT LTD (09/14/2018 2:33 PM CDT) Anatomical Region Laterality Modality Left Ultrasound 09/14/2018 2:33 PM CDT Impressions 09/14/2018 4:25 PM CDT IMPRESSION: 1. Stable sonographic appearance of a predominantly hyperechoic mass at the 9:00 position of the left breast 10 cm from the nipple. This again may represent a lipoma or contusion/fat necrosis. The patient was again offered short interval follow-up or percutaneous biopsy. She prefers 3 month follow-up imaging evaluation at this time. 2. Stable sonographic appearance of the oval circumscribed hypoechoic mass at the 9:00 position of the left breast 5 cm from the nipple. This finding will also remain classified as probably benign. BI-RADS CATEGORY 3: PROBABLY BENIGN Thank you for allowing us to participate in the care of your patient. Narrative 09/14/2018 4:25 PM CDT LIMITED LEFT BREAST ULTRASOUND INDICATION: 48-year-old female who presents for 3 month follow-up imaging evaluation of a predominantly hyperechoic palpable mass at the 9:00 position of the left breast, favored to represent a lipoma or contusion/fat necrosis. She also presents for additional follow-up imaging of a circumscribed hypoechoic mass at the 9:00 position of the left breast. Reference ultrasound dated 06/26/2018. COMPARISONS: 06/26/2018. FINDINGS: Limited left breast ultrasound was again performed. An oval circumscribed hypoechoic mass is again seen at the 9:00 position of the left breast 5 cm from the nipple. It is stable in size and configuration given differences in technique, currently measuring 7 x 4 x 6 mm (previously 7 x 4 x 6 mm on 06/26/2018). A subtle predominantly hyperechoic masslike area is again seen at the 9:00 position of the left breast 10 cm from the nipple. It is similar in size when compared to the prior study, currently measuring 1.4 x 0.6 x 1.1 cm (previously 1.4 x 0.4 x 1.4 cm on 06/26/2018). us Silvana Ashraf DO MAMMO ORDERABLES Elsy l Result documented in this encounter Visit Diagnoses Diagnosis Abnormal ultrasound of breast Other (abnormal) findings on radiological examination of breast Abnormal ultrasound of breast Other (abnormal) findings on radiological examination of breast documented in this encounter Care Teams Sports Photographer Relationship Specialty Start Date End Date Aneesh Lemons MD [address] [place] [address] PCP - General 03/27/08 documented as of this encounter
--- OUTSIDE RECORDS SUMMARY | 2024-07-22 13:10 | XMS_ITS | Encounter Summary ---
Author Organization [employer] Address [address] [place] [address] Care Team Providers Care Ingot Weigher Name Role Phone Unavailable Primary Care Provider Unavailabl e Encounter Details Date Type Department Care Team (Late st Contact Info) Description 06/25/2024 External Device Data STL ABSTRACTION Provider, Abstract NO ADDRESS ON FILE Social History Tobacco Use Types Packs/Day Years Used Date Smoking Tobacco: Never Alcohol Use Standard Drinks/Week Comments No 0 (1 standard drink = 0.6 oz pur e alcohol) Comments Unknown Sex and Gender Information Value Date Recorded Sex Assigned at Not on file Legal Sex Female 1:17 AM STORY TELLER Gender Identity Not on file Sexual Orientation Not on file documented as of this encounter Plan of Treatment Not on file documented as of this encounter Visit Diagnoses Not on filedocumented in this encounter
--- OUTSIDE RECORDS SUMMARY | 2024-07-22 13:10 | XMS_ITS | Encounter Summary ---
Author Organization [employer] Address [address] [place] [address] Care Team Providers Care Warp Clamper Name Role Phone Unavailable Primary Care Provider Unavailabl e Encounter Details Date Type Department Care Team (Late st Contact Info) Description 07/12/2024 External Device Data STL ABSTRACTION Provider, Abstract NO ADDRESS ON FILE Social History Tobacco Use Types Packs/Day Years Used Date Smoking Tobacco: Never Alcohol Use Standard Drinks/Week Comments No 0 (1 standard drink = 0.6 oz pur e alcohol) Comments Unknown Sex and Gender Information Value Date Recorded Sex Assigned at Not on file Legal Sex Female 1:17 AM HAND BENDER Gender Identity Not on file Sexual Orientation Not on file documented as of this encounter Plan of Treatment Not on file documented as of this encounter Visit Diagnoses Not on filedocumented in this encounter
[2024-07-22 13:25] VITALS: BP 160/91; PULSE 73; RESP 18; TEMP 36.9; O2SAT 98; BMI 29.3
--- OUTSIDE RECORDS SUMMARY | 2024-07-22 15:33 | XMS_ITS | Encounter Summary ---
Author Organization [facility] Address [address] [place] [address] Care Team Providers Care Computer Compositor Name Role Phone Aneesh Lemons MD Primary Care Provider [phone] Reason for Referral * Radiology Services (Routine) - Closed Specialty Diagnoses / Procedures Referred By Contac t Referred To Contact Radiology Diagnoses Abnormal ultrasound of breast Procedures MAMMO BREAST US LEFT LTD Silvana Ashraf DO [address] [place] [address] Phone: tel: fax: [address] [address] Phone: tel: fax: Referral ID Status Reason Start Date Expiration Date V isits Requested Visits Authorized [id number] Closed CTS to Schedule (AOK) 09/13/2018 10/14/2019 1 1 Encounter Details Date Type Department Care Team (Late st Contact Info) Description 09/13/2018 Ancillary Orders [address] [address] Silvana Ashraf DO [address] [place] [address] Abnormal ultrasound of breast Social History Tobacco Use Types Packs/Day Years Used Date Smoking Tobacco: Never Alcohol Use Standard Drinks/Week Comments No 0 (1 standard drink = 0.6 oz pur e alcohol) Comments No Sex and Gender Information Value Date Recorded Sex Assigned at Not on file Legal Sex Female 3:10 AM SENIOR ADMINISTRATIVE SUPPORT Gender Identity Not on file Sexual Orientation [...] breast documented in this encounter Care Teams Computer Compositor Relationship Specialty Start Date End Date Aneesh Lemons MD [address] [place] [address] PCP - General 03/27/08 documented as of this encounter
--- OUTSIDE RECORDS SUMMARY | 2024-07-22 15:33 | XMS_ITS | Clinical Summary ---
Author Organization [facility] Address [address] [place] [address] Phone Care Team Providers Care Surtass Analyst Name Role Phone Aneesh Lemons MD Primary Care Provider [phone] Allergies Active Allergy Reactions Criticality Noted Date [...] on file Legal Sex Female 3:10 AM MARKETING EXECUTIVE Gender Identity Not on file Sexual Orientation [...] age to complete this topic Care Teams Surtass Analyst Relationship Specialty Start Date End Date Aneesh Lemons MD [address] [place] [id number] PCP - General 03/27/08
--- OUTSIDE RECORDS SUMMARY | 2024-07-22 15:33 | XMS_ITS | Encounter Summary ---
Author Organization [facility] Address [address] [place] [address] Care Team Providers Care Pin Cleaner Name Role Phone Aneesh Lemons MD Primary Care Provider [phone] Encounter Details Date Type Department Care Team (Latest Contact Info) Description 02/18/2008 Outpatient Historical [facility] [place] Aneesh Dennis MD [address] [place] [address] Insomnia, Unspecified; Abnormal Weight Gain; Contact Dermatitis and Other Eczema, due to Unspecified Cause; Acute Sinusitis, Unspecified Social History Tobacco Use Types Packs/Day Years Used Date Smoking Tobacco: Never Assessed Comments Unknown Sex and Gender Information Value Date Recorded Sex Assigned at Not on file Legal Sex Female 3:10 AM AUTOMOTIVE GLASS SPECIALIST Gender Identity Not on file Sexual Orientation Not on file documented as of this encounter Plan of Treatment Not on file documented as of this encounter Visit Diagnoses Diagnosis Insomnia, unspecified Abnormal weight gain Contact dermatitis and other eczema, due to unspecified cause Acute sinusitis, unspecified documented in this encounter Care Teams Pin Cleaner Relationship Specialty Start Date End Date Aneesh Lemons MD [address] [place] [address] PCP - General 03/27/08 documented as of this encounter
--- OUTSIDE RECORDS SUMMARY | 2024-07-22 15:33 | XMS_ITS | Encounter Summary ---
Author Organization [facility] Address [address] [place] [address] Care Team Providers Care Head Animal Trainer Name Role Phone Aneesh Lemons MD Primary Care Provider [phone] Reason for Visit * Reason Onset Date Comments Medication Refill 02/28/2019 Encounter Details Date Type Department Care Team (Late st Contact Info) Description 02/28/2019 [address]ill [facility] Primary Care - [facility] [address] [place] [address] Aneesh Lemons MD [address] [place] [address] Weight gain Social History Tobacco Use Types Packs/Day Years Used Date Smoking Tobacco: Never Alcohol Use Standard Drinks/Week Comments No 0 (1 standard drink = 0.6 oz pur e alcohol) Comments No Sex and Gender Information Value Date Recorded Sex Assigned at Not on file Legal Sex Female 3:10 AM HEALTH PSYCHOLOGIST Gender Identity Not on file Sexual Orientation Not on file documented as of this encounter Plan of Treatment Not on file documented as of this encounter Visit Diagnoses Diagnosis Weight gain Abnormal weight gain documented in this encounter Care Teams Head Animal Trainer Relationship Specialty Start Date End Date Aneesh Lemons MD [address] [place] [address] PCP - General 03/27/08 documented as of this encounter
--- OUTSIDE RECORDS SUMMARY | 2024-07-22 15:33 | XMS_ITS | Encounter Summary ---
Author Organization [facility] Address [address] [place] [address] Care Team Providers Care Industrial Psychology Teacher Name Role Phone Aneesh Lemons MD Primary Care Provider [phone] Encounter Details Date Type Department Care Team (Late st Contact Info) Description 03/27/2008 Inpatient Historical [facility] Armando Dillard MD [address] [place], [place] [id number] [place] [address] [facility] [address] [place] [address] Social History Tobacco Use Types Packs/Day Years Used Date Smoking Tobacco: Never Assessed Comments No Sex and Gender Information Value Date Recorded Sex Assigned at Not on file Legal Sex Female 3:10 AM NECK PINNER Gender Identity Not on file Sexual Orientation Not on file documented as of this encounter Plan of Treatment Not on file documented as of this encounter Procedures Procedure Name Priority Date/Time Associated Diagnosis Comments PATHOLOGY Routine 03/28/2008 9:08 AM NECK PINNER RBC MORPHOLOGY Routine 03/28/2008 5:25 AM NECK PINNER CBC WITH DIFFERENTIAL Routine 03/28/2008 5:25 AM NECK PINNER LIPASE Routine 03/27/2008 12:05 PM NECK PINNER COMPREHENSIVE METABOLIC PANEL Routine 03/27/2008 12:[address] ABDOMEN PELVIS W CONTRAST Routine 03/27/2008 11:40 AM NECK PINNER URINALYSIS WITH REFLEX CULTURE Routine 03/27/2008 11:20 AM NECK PINNER CBC WITH DIFFERENTIAL Routine 03/27/2008 10:39 AM NECK PINNER documented in this encounter Results * PATHOLOGY (03/28/2008 9:08 AM NECK PINNER) Pathologist [facility] SURGICAL PATHOLOGY [facility] Pathology [address] [facility] * [place] [address] fax: [phone] Salvatore Voss MD * Gabriele Dow MD * MD Jazmin Umana MD * Al Logan MD * Jamie Bella MD Name: STEPHANIELUIS FERNANDO Karen Age/Sex: 38/F Attend Dr: Abby Macedo MD Unit#: [id number] Status: DIS IN Location: [facility] [id number] Re03/27/08 Disch: 03/28/08 Received: 03/28/08 Status: TENZIN [place]#: [id number] Spec #: [id number] Spec Type: SURGICAL P Subm Dr: Abby Macedo MD FINAL DIAGNOSIS VERMIFORM APPENDIX (APPENDECTOMY): - ACUTE PERIAPPENDICITIS WITH FIBROUS SEROSAL ADHESIONS. - NEGATIVE FOR ACUTE APPENDICITIS. TISSUES: A. - APPENDIX OTHER THAN INCIDENTAL [id number] - APPENDIX CLINICAL INFORMATION: PRE-OP DIAGNOSIS/REASON FOR [...] for hemorrhagic debris. No fecoliths are identified. Septic Tank Servicer sections will be submitted in one cassette. am/tw MICROSCOPIC DESCRIPTION: Sections show acute periappendicitis with serosal adhesions. No intraluminal or intramural inflammation is observed. Dictated by: JAMIE BELLA MD Signed <<Signature On File>> JAMIE BELLA MD 03/29/08 END OF REPORT [facility] 03/28/2008 9:08 AM NECK PINNER 03/28/2008 9:07 AM NECK PINNER us Abby Macedo MD PATHOLOGY/CYTOLOGY ORDERA BLES Final Result Performing Organization Address City/[facility] de Phone Number INTERFACE SYSTEM Refer to clinic/hospital department [facility] CLIA# [id number] [address] [place] [id number] * RBC MORPHOLOGY (03/28/2008 5:25 AM NECK PINNER) RBC MORPHOLOGY Normal NORMAL [facility] PLATELET EST. Adequate [facility] 03/28/2008 5:25 AM NECK PINNER 03/28/2008 5:54 AM NECK PINNER us Abby Macedo MD HEMATOLOGY ORDERABLES Fin al Result Performing Organization Address [facility] Phone Number INTERFACE SYSTEM Refer to clinic/hospital department [facility] CLIA# [id number] [address] [place] [address] * CBC WITH DIFFERENTIAL (03/28/2008 5:25 AM NECK PINNER) BANDS 2 0 - 6 % [facility] MONOCYTE 2 0 - 8 % [facility] EOSINOPHILS 0 0 - 6 % [facility] BASOPHILS 0 0 - 1 % [facility] PLATELET EST. Adequate [facility] 03/28/2008 5:25 AM NECK PINNER 03/28/2008 5:54 AM NECK PINNER us Abby Macedo MD HEMATOLOGY ORDERABLES Kb chuy Performing Organization Address [facility] de Phone Number INTERFACE SYSTEM Refer to clinic/hospital department [facility] CLIA# [id number] [address] [place] [address] * LIPASE (03/27/2008 12:05 PM NECK PINNER) LIPASE 24 5 - 51 U/L [facility] 03/27/2008 12:0 5 PM NECK PINNER 03/27/2008 12:11 PM NECK PINNER us Parish Gresham MD CHEMISTRY ORDERABLES Final R esult INTERFACE SYSTEM Refer to clinic/hospital department [facility] CLIA# [id number] [address] [place] [address] * (ABNORMAL) COMPREHENSIVE METABOLIC PANEL (03/27/2008 12:05 PM NECK PINNER) SODIUM 136(L) 137 - 145 mmol/L [facility] POTASSIUM 4.4 3.6 - 5.0 mmol/L [facility] CHLORIDE 105 95 - 110 mmol/L [facility] CO2 26.3 20 - 31 mmol/L [facility] ANION GAP 5 0 - 12 [facility] BUN 9 6 - 20 mg/dL [facility] CREATININE 0.7 0.6 - 1.3 mg/dL [facility] GLUCOSE 94 70 - 110 mg/dL [facility] GFR GT 60 mL/min [facility] GFR, GT 60 mL/min [facility] Comment: *eGFR Units = mL/min/1.73 sq. [...] TOTAL PROTEIN 7.0 6.2 - 8.3 gm/dL [facility] ALBUMIN 4.3 3.5 - 5.0 gm/dL [facility] CALCIUM 9.0 8.2 - 10.3 mg/dL [facility] BILIRUBIN TOTAL 0.4 0.0 - 1.5 mg/dL [facility] ALKALINE PHOSPHATASE 48 34 - 132 U/L [facility] AST 17 3 - 45 U/L [facility] ALT 15 7 - 40 U/L [facility] HEMOLYSIS None No Hemo [facility] LIPEMIA None No Lipemia [facility] ICTERUS None No Icteric [facility] 03/27/2008 12:0 5 PM NECK PINNER 03/27/2008 12:11 PM NECK PINNER Parish Gresham MD CHEMISTRY ORDERABLES Final R esult INTERFACE SYSTEM Refer to clinic/hospital department [facility] CLIA# [id number] [address] [place] [address] * CT ABDOMEN PELVIS W CONTRAST (03/27/2008 11:40 AM NECK PINNER) Anatomical Region Laterality Modality Abdomen Other 03/27/2008 11:4 0 AM NECK PINNER Narrative 03/27/2008 11:40 AM NECK PINNER Name: STEPHANIELUIS FERNANDO Phys: GEOFF IYER/Radha GUTIERREZ : 1970 Age: 38 Sex: F Acct: [id number] Loc: [facility] Exam Date: 03/27/2008 Exam Time: 1135 Status: REG ER Radiology No: Unit No: [id number] Patient Phone No: [phone] EXAMS: [id number] APPY PROT/CT ABD/PEL WI CONTR Clinical Data: [...] TELLEZ RNCNS Dictated Date/Time: Transcribed Date/Time: 03/27/2008 (9259) Hay Chopper: YOU BARAKAT Printed Date/Time: 03/27/2008 (8912) PAGE 1 Signed Report Procedure Note Provider, Historical - 03/27/2008 Name: LUIS FERNANDO BROWN Phys: GEOFF RN/ALEXANDER GUTIERREZ : 1970 Age: 38Sex: F Acct: [id number] Loc: [facility] Exam Date: 03/27/2008 Exam Time:1135 Status: REG ER Radiology No: Unit No: [id number] Patient Phone No: [phone] EXAMS: [id number] APPY PROT/CT ABD/PEL WI CONTR Clinical Data: [...] TELLEZ RNCNS Dictated Date/Time: Transcribed Date/Time: 03/27/2008 (4097) Hay Chopper: YOU BARAKAT Printed Date/Time: 03/27/2008 (7666) PAGE 1 Signed Report Radha Tellez CT ORDERABLES Final Result * (ABNORMAL) URINALYSIS WITH REFLEX CULTURE (03/27/2008 11:20 AM NECK PINNER) COLOR UA Yellow [facility] CLARITY UA Clear [facility] SPECIFIC GRAVITY UA 1.018 1.001 - 1.035 [facility] PH UA 5.0 4.6 - 8.0 [facility] PROTEIN UA Negative Negative mg/dL [facility] GLUCOSE UA Negative Negative mg/dL [facility] KETONES UA Negative Negative mg/dL [facility] BILIRUBIN UA Negative Negative mg/dL [facility] BLOOD UA Negative Negative mg/dL [facility] UROBILINOGEN UA Normal 0.1 - 1.0 mg/dL [facility] NITRITE UA Negative Negative [facility] LEUKOCYTE ESTERASE UA Negative Negative [facility] RBC UA 0-3 0 - 2 /HPF [facility] WBC UA 0-3 0 - 6 /HPF [facility] EPITHELIAL CELLS, URINE 0-5 /HPF [facility] MUCOUS, URINE Rare [facility] BACTERIA UA 2+(A) Neg [facility] URINE CULTURE ORDER No [facility] 03/27/2008 11:2 0 AM NECK PINNER 03/27/2008 11:36 AM NECK PINNER Parish Gresham MD URINE ORDERABLES Final Resul t INTERFACE SYSTEM Refer to clinic/hospital department [facility] CLIA# [id number] [address] [facility] [place] [address] * CBC WITH DIFFERENTIAL (03/27/2008 10:39 AM NECK PINNER) WBC 5.8 4.5 - 11.0 10E3 [facility] RBC 4.94 3.80 - 5.10 10E6 [facility] HEMOGLOBIN 15.1 11.7 - 15.5 g/dL [facility] HEMATOCRIT 42.4 35.0 - 45.0 % [facility] MCV 86 81 - 101 fL [facility] MCH 30.6 27 - 34 pG [facility] MCHC 35.6 32 - 36 g/dL [facility] RDW-STDEV 38.6 37.0 - 54.0 fl [facility] RDW CV 12.5 11 - 16 CV [facility] PLATELETS 248 150 - 450 10E3 [facility] MPV 10.4 8.6 - 11.7 fl [facility] NEUTROPHIL 59 36 - 78 % [facility] LYMPHOCYTES 30 24 - 44 % [facility] MONOCYTE 8 0 - 8 % [facility] EOSINOPHILS 2 0 - 6 % [facility] BASOPHILS 1 0 - 1 % [facility] NEUTROPHIL ABSOLUTE 3.40 1.8 - 7.7 10E3 [facility] LYMPHOCYTE ABSOLUTE 1.74 1.0 - 4.8 E3 [facility] MONOCYTE ABSOLUTE 0.45 0.0 - 0.[address] [place] [address] LAB BASOPHILS ABSOLUTE 0.13 0.0 - 0.7 E3 [facility] EOSINOPHIL ABSOLUTE 0.03 0.0 - 0.2 10E3 [facility] 03/27/2008 10:3 9 AM NECK PINNER 03/27/2008 10:41 AM NECK PINNER us Parish Gresham MD HEMATOLOGY ORDERABLES Final Result INTERFACE SYSTEM Refer to clinic/hospital department [facility] CLIA# [id number] [address] [place] [address] documented in this encounter Visit Diagnoses Not on filedocumented in this encounter Care Teams Industrial Psychology Teacher Relationship Specialty Start Date End Date Aneesh Lemons MD [address] [place] [address] PCP - General 03/27/08 documented as of this encounter
--- OUTSIDE RECORDS SUMMARY | 2024-07-22 15:33 | XMS_ITS | Encounter Summary ---
Author Organization [facility] Address [address] [place] [address] Care Team Providers Care Cargo Service Agent Name Role Phone Aneesh Lemons MD Primary Care Provider [phone] Reason for Visit * Reason Onset Date Comments Medication Refill 02/26/2019 Encounter Details Date Type Department Care Team (Late st Contact Info) Description 02/26/[address] [facility] Primary Care - [facility] [address] [place] [address] Aneesh Leomns MD [address] [place] [address] Weight gain Social History Tobacco Use Types Packs/Day Years Used Date Smoking Tobacco: Never Alcohol Use Standard Drinks/Week Comments No 0 (1 standard drink = 0.6 oz pur e alcohol) Comments No Sex and Gender Information Value Date Recorded Sex Assigned at Not on file Legal Sex Female 3:10 AM INDUSTRIAL ARTS TEACHER Gender Identity Not on file Sexual Orientation Not on file documented as of this encounter Plan of Treatment Not on file documented as of this encounter Visit Diagnoses Diagnosis Weight gain Abnormal weight gain documented in this encounter Care Teams Cargo Service Agent Relationship Specialty Start Date End Date Aneesh Lemons MD [address] [place] [address] PCP - General 03/27/08 documented as of this encounter
--- OUTSIDE RECORDS SUMMARY | 2024-07-22 15:33 | XMS_ITS | Encounter Summary ---
Author Organization [employer] Address [address] [place] [address] Care Team Providers Care Medical Record Librarian Name Role Phone Unavailable Primary Care Provider [...] on file Legal Sex Female 1:17 AM HOT TOP LINER Gender Identity Not on file Sexual Orientation Not on file documented as of this encounter Plan of Treatment Not on file documented as of this encounter Visit Diagnoses Not on filedocumented in this encounter
--- OUTSIDE RECORDS SUMMARY | 2024-07-22 15:33 | XMS_ITS | Encounter Summary ---
Author Organization [facility] Address [address] [place] [address] Care Team Providers Care Lime Boiler Name Role Phone Aneesh Lemons MD Primary Care Provider [phone] Lalita Yeung MD Primary Care Provider [phone] Encounter Details Date Type Department Care Team (Late st Contact Info) Description 10/08/2019 Scanned Document [facility] Bariatric Surgery [address] [place] [address] Nathan Tate MD [address] [place] [address] Social History Tobacco Use Types Packs/Day Years [...] st Contact Info) Description 04/07/2025 8:00 AM BOOKING AGENT Office Visit LALITA YEUNG MD [address] [phone] Cheryl Das, TIP FIXER [address] [place] [address] documented as of this encounter Visit Diagnoses Not on filedocumented in this encounter Care Teams Lime Boiler Relationship Specialty Start Date End Date Aneesh Lemons MD PCP - General Family Medicine 10/03/19 03/23/23 Lalita Yeung MD [address] [place] [address] PCP - General Hospitalist 03/24/23 documented as of this encounter
--- OUTSIDE RECORDS SUMMARY | 2024-07-22 15:33 | XMS_ITS | Encounter Summary ---
Author Organization [employer] [facility] Address [address] [place] [address] Care Team Providers Care Site Supervising Technical Operator Name Role Phone Aneesh Lemons MD Primary Care Provider [phone] Encounter Details Date Type Department Care Team (Late st Contact Info) Description 05/14/2007 Outpatient Historical [facility] [place] [place] Aneesh Dennis MD [address] [place] [address] Social History Tobacco Use Types Packs/Day Years Used Date Smoking Tobacco: Never Assessed Comments Unknown Sex and Gender Information Value Date Recorded Sex Assigned at Not on file Legal Sex Female 3:10 AM FRUIT HARVESTER Gender Identity Not on file Sexual Orientation Not on file documented as of this encounter Plan of Treatment Not on file documented as of this encounter Visit Diagnoses Not on filedocumented in this encounter Care Teams Site Supervising Technical Operator Relationship Specialty Start Date End Date Aneesh Lemons MD [address] [place] [address] PCP - General 03/27/08 documented as of this encounter
--- OUTSIDE RECORDS SUMMARY | 2024-07-22 15:33 | XMS_ITS | Encounter Summary ---
Author Organization [facility] Address [address] [place] [address] Care Team Providers Care Director Of Housing Name Role Phone Aneesh Lemons MD Primary Care Provider Lalita Yeung MD Primary Care Provider [phone] Encounter Details Date Type Department Care Team (Late st Contact Info) Description 11/11/2019 Scanned Document [facility] Bariatric Surgery [address] [place] [address] Nathan Tate MD [address] [place] [address] Social History Tobacco Use Types Packs/Day Years [...] st Contact Info) Description 04/07/2025 8:00 AM SHARE HOLDER Office Visit LALITA YEUNG MD [address] [phone] Cheryl Das, SWITCHBOARD MECHANIC [address] [place] [address] documented as of this encounter Visit Diagnoses Not on filedocumented in this encounter Care Teams Director Of Housing Relationship Specialty Start Date End Date Aneesh Lemons MD PCP - General Family Medicine 10/03/19 03/23/23 Lalita Yeung MD [address] [place] [address] PCP - General Hospitalist 03/24/23 documented as of this encounter
--- OUTSIDE RECORDS SUMMARY | 2024-07-22 15:33 | XMS_ITS | Encounter Summary ---
Author Organization [employer] [facility] Address [address] [place] [address] Care Team Providers Care Blunger Loader Name Role Phone Aneesh Lemons MD Primary Care Provider [phone] Reason for Visit * Reason Comments Medication Refill Encounter Details Date Type Department Care Team (Late st Contact Info) Description 06/22/2017 Refill [facility] Primary Care - [facility] [address] [place] [address] Aneesh Lemons MD [address] [place] [address] Social History Tobacco Use Types Packs/Day Years Used Date Smoking Tobacco: Never Alcohol Use Standard Drinks/Week Comments No 0 (1 standard drink = 0.6 oz pur e alcohol) Comments No Sex and Gender Information Value Date Recorded Sex Assigned at Not on file Legal Sex Female 3:10 AM RAPID TRANSIT OPERATOR Gender Identity Not on file Sexual Orientation Not on file documented as of this encounter Plan of Treatment Not on file documented as of this encounter Visit Diagnoses Not on filedocumented in this encounter Care Teams Blunger Loader Relationship Specialty [place] [address] [place] [address] PCP - General 03/27/08 documented as of this encounter
--- OUTSIDE RECORDS SUMMARY | 2024-07-22 15:33 | XMS_ITS | Encounter Summary ---
Author Organization [facility] Address [address] [place] [address] Care Team Providers Care Structural Biologist Name Role Phone Aneesh Lemons MD Primary Care Provider [phone] Reason for Referral * Radiology Services (Routine) - Closed Specialty Diagnoses / Procedures Referred By Contac t Referred To Contact Radiology Diagnoses Breast lump Procedures MAMMO BREAST US LEFT LTD Aneesh Lemons MD [address] [place] [address] Phone: tel: fax: [address] [address] Phone: tel: fax: Referral ID Status Reason Start Date Expiration Date Visits Re quested Visits Authorized [id number] Closed 06/26/2018 07/27/2019 1 1 GIRLS GOLF COACH Encounter Details Date Type Department Care Team (Late st Contact Info) Description 06/26/2018 Ancillary Orders [address] [address] Aneesh Lemons MD [address] [place] [address] Breast lump Social History Tobacco Use Types Packs/Day Years Used Date Smoking Tobacco: Never Alcohol Use Standard Drinks/Week Comments No 0 (1 standard drink = 0.6 oz pur e alcohol) Comments No Sex and Gender Information Value Date Recorded Sex Assigned at Not on file Legal Sex Female 3:10 AM HEAD GIRLS GOLF COACH Gender Identity Not on file Sexual Orientation Not on file documented as of this encounter Plan of Treatment Not on file documented as of this encounter Results * (ABNORMAL) MAMMO BREAST US LEFT LTD (06/26/2018 10:43 AM HEAD GIRLS GOLF COACH) Anatomical Region Laterality Modality Left Ultrasound 06/26/2018 10:4 3 AM HEAD GIRLS GOLF COACH Impressions 06/26/2018 11:21 AM HEAD GIRLS GOLF COACH IMPRESSION: 1. Predominantly hyperechoic palpable 1.4 cm [...] results and my recommendations prior to leaving [facility]. She will also receive a letter. Thank you for allowing us to participate in the care of your patient. Narrative 06/26/2018 11:21 AM HEAD GIRLS GOLF COACH PROCEDURE: MAMMO DIAG BILAT 3D KEMI W [...] breast documented in this encounter Care Teams Structural Biologist Relationship Specialty Start Date End Date Aneesh Lemons MD [address] [place] [address] PCP - General 03/27/08 documented as of this encounter
--- OUTSIDE RECORDS SUMMARY | 2024-07-22 15:33 | XMS_ITS | Encounter Summary ---
Author Organization [employer] Address [address] [place] [address] Care Team Providers Care Citizen Participation Specialist Name Role Phone Unavailable Primary Care Provider [...] on file Legal Sex Female 1:17 AM ASSISTANT PROFESSOR OF SOCIOLOGY Gender Identity Not on file Sexual Orientation Not on file documented as of this encounter Plan of Treatment Not on file documented as of this encounter Visit Diagnoses Not on filedocumented in this encounter
--- OUTSIDE RECORDS SUMMARY | 2024-07-22 15:33 | XMS_ITS | Encounter Summary ---
Author Organization [employer] Address [address] [place] [address] Care Team Providers Care Marketing Clerk Name Role Phone Aneesh Lemons MD Primary Care Provider Lalita Yeung MD Primary Care Provider + [phone] Reason for Referral * Consultation (Routine) - Closed Specialty Diagnoses / Procedures Referred By Contsteven t Referred To Contact Bariatrics Diagnoses Obesity, Class III, BMI 40-49.9 (morbid obesity) Procedures Ambulatory referral for Bariatric Authorization Nathan Tate MD [address] [place] [address] Nathan Tate MD [address] [place] [address] Referral ID Status Reason Start Date Expiration Date V isits Requested Visits Authorized [id number] Closed Specialty Services Required 08/02/2019 08/01/2020 1 1 Encounter Details Date Type Department Care Team (Latest Contact Info) Description 08/02/2019 Transcribe Orders [facility] Bariatric Surgery [address] [place] [address] Nathan Tate MD [address] [place] [address] Obesity, Class III, BMI 40-49.9 (morbid obesity) [...] st Contact Info) Description 04/07/2025 8:00 AM PHARMACY SALES REPRESENTATIVE Office Visit LALITA YEUNG MD [address] [place] [address] Cheryl Das, RADIATION CONTROL SPECIALIST [address] [place] [address] documented as of this encounter Visit Diagnoses Diagnosis Obesity, Class III, BMI 40-49.9 (morbid obesity)- Primary documented in this encounter Care Teams Marketing Clerk Relationship Specialty Start Date End Date Aneesh Lemons MD PCP - General Family Medicine 10/03/19 03/23/23 Lalita Yeung MD [address] [place] [address] PCP - General Hospitalist 03/24/23 documented as of this encounter
--- OUTSIDE RECORDS SUMMARY | 2024-07-22 15:33 | XMS_ITS | Encounter Summary ---
Author Organization [employer] [facility] Address [address] [place] [address] Care Team Providers Care Quantitative Associate Name Role Phone Aneesh Lemons MD Primary Care Provider Lalita Yeung MD Primary Care Provider + [phone] Encounter Details Date Type Department Care Team (Late st Contact Info) Description 01/01/2020 Scanned Document [facility] Bariatric Surgery [address] [place] [address] Nathan Tate MD [address] [place] [address] Social History Tobacco Use Types Packs/Day Years [...] st Contact Info) Description 04/07/2025 8:00 AM DIRECTOR OF INFORMATICS Office Visit LALITA YEUNG MD [address] [phone] Cheryl Das, PADDER CUSHION [address] [place] [address] documented as of this encounter Visit Diagnoses Not on filedocumented in this encounter Care Teams Quantitative Associate Relationship Specialty Start Date End Date Aneesh Lemons MD PCP - General Family Medicine 10/03/19 03/23/23 Lalita Yeung MD [address] [place] [address] PCP - General Hospitalist 03/24/23 documented as of this encounter
--- OUTSIDE RECORDS SUMMARY | 2024-07-22 15:33 | XMS_ITS | Encounter Summary ---
Author Organization [employer] Address [address] [place] [address] Care Team Providers Care Packaging Supervisor Name Role Phone Unavailable Primary Care Provider [...] on file Legal Sex Female 1:17 AM ELECTRONICS ENGINEERING TECHNICIAN Gender Identity Not on file Sexual Orientation Not on file documented as of this encounter Plan of Treatment Not on file documented as of this encounter Visit Diagnoses Not on filedocumented in this encounter
--- OUTSIDE RECORDS SUMMARY | 2024-07-22 15:33 | XMS_ITS | Encounter Summary ---
Author Organization [employer] [facility] Address [address] [place] [address] Care Team Providers Care Communications Equipment Supervisor Name Role Phone Aneesh Lemons MD Primary Care Provider [phone] Encounter Details Date Type Department Care Team (Late st Contact Info) Description 10/11/2006 Outpatient Historical [facility] [place] Aneesh Dennis MD [address] [place] [address] Social History Tobacco Use Types Packs/Day Years Used Date Smoking Tobacco: Never Assessed Comments Unknown Sex and Gender Information Value Date Recorded Sex Assigned at Not on file Legal Sex Female 3:10 AM SENIOR INTEGRATION DEVELOPER Gender Identity Not on file Sexual Orientation Not on file documented as of this encounter Plan of Treatment Not on file documented as of this encounter Visit Diagnoses Not on filedocumented in this encounter Care Teams Communications Equipment Supervisor Relationship Specialty Start Date End Date Aneesh Lemons MD [address] [place] [address] PCP - General 03/27/08 documented as of this encounter
--- OUTSIDE RECORDS SUMMARY | 2024-07-22 15:33 | XMS_ITS | Encounter Summary ---
Author Organization [employer] Address [address] [place] [address] Care Team Providers Care Maintenance Trainer Name Role Phone Unavailable Primary Care Provider [...] on file Legal Sex Female 1:17 AM GERIATRIC NURSE PRACTITIONER Gender Identity Not on file Sexual Orientation Not on file documented as of this encounter Plan of Treatment Not on file documented as of this encounter Visit Diagnoses Not on filedocumented in this encounter
--- OUTSIDE RECORDS SUMMARY | 2024-07-22 15:33 | XMS_ITS | Encounter Summary ---
Author Organization [employer] Address 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
--- OUTSIDE RECORDS SUMMARY | 2024-07-22 15:33 | XMS_ITS | Encounter Summary ---
Author Organization [employer] Address [address] [place] [address] Care Team Providers Care Tuber Helper Name Role Phone Lalita Yeung MD Primary Care Provider [phone] Encounter Details Date Type Department Care Team (Late Contact Info) Description 03/27/2023 Scanned Document LALITA YEUNG MD [address] [address] [place] [address] Lalita Yeung MD 3030 [facility] [address] [place] [address] Social History Tobacco Use Types [...] (Late Contact Info) Description 04/07/2025 8:00 AM SONOGRAM TECHNICIAN Office Visit LALITA YEUNG MD [address] [address] [place] [address] Das, Cheryl T, NAVY MATERIAL INSPECTOR [address] [place] [address] documented as of this encounter Visit Diagnoses Not on filedocumented in this encounter Care Teams Tuber Helper Relationship Specialty Start Date End Date Lalita Yeung MD [address] [place] [address] PCP - General Hospitalist 03/24/23 documented as of this encounter
--- OUTSIDE RECORDS SUMMARY | 2024-07-22 15:33 | XMS_ITS | Clinical Summary ---
Author Organization [employer] Address [address] [place] [address] Care Team Providers Care Animal Warden Name Role Phone Lalita Yeung MD Primary Care Provider + [phone] Allergies Active Allergy Reactions Criticality Noted Date [...] Department Care Team Description 05/15/2024 9:49 AM BALLPOINT PENS ASSEMBLER - 05/15/2024 11:59 PM BALLPOINT PENS ASSEMBLER Hospital Encounter HPI [facility] [address] [place] [address] Cheryl Das APRN Screening for osteoporosis; S/P [...] Comments Blood Pressure 138/70 04/01/2024 7:47 AM BALLPOINT PENS ASSEMBLER Pulse 86 04/01/2024 7:47 AM BALLPOINT PENS ASSEMBLER Temperature 36.9 C (98.5 F) 04/01/2024 7:47 AM BALLPOINT PENS ASSEMBLER Respiratory Rate 17 10/09/2023 2:17 PM CDT Oxygen Saturation 98% 04/01/2024 7:47 AM BALLPOINT PENS ASSEMBLER Inhaled Oxygen Concentration - - Weight 68.5 kg (151 lb) 04/01/2024 7:47 AM BALLPOINT PENS ASSEMBLER Height 154.9 cm (5' 0.98) 04/01/2024 7:47 AM CS T Body Mass Index 28.55 04/01/2024 7:47 AM BALLPOINT PENS ASSEMBLER Plan of Treatment Upcoming Encounters Date Type Department Care Team (Late st Contact Info) Description 04/07/2025 8:00 AM BALLPOINT PENS ASSEMBLER Office Visit LALITA YEUNG MD [address] [place] [phone] Cheryl Das APRN [address] [place] [id number] Health Maintenance Due Date Last Done Comments Colonoscopy 1969 Mammogram 1969 Pap Smear Age 21+ 1990 Influenza Vaccine (#1) 2024 Pneumococcal Vaccine: Pediat rics (0-5 Years) and At-Risk Patients (6-64 Years) Aged Out No longer eligible b ased on patient's age to complete this topic Procedures Procedure Name Priority Date/Time Associated Diagnosis Comments BONE DENSITOMETRY AXIAL SKELETON 12541 Routine 05/15/2024 10:05 AM BALLPOINT PENS ASSEMBLER Screening for osteoporosis 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 World Health Organization [...] by: Jorge Clayton DO 05/15/2024 01:07 PM BALLPOINT PENS ASSEMBLER [facility] 05/15/2024 1:07 PM BALLPOINT PENS ASSEMBLER EXAMINATION: DUAL X-RAY ABSORPTIOMETRY (DXA) FOR BONE MINERAL DENSITY. CLINICAL INDICATION: 54 years old, Female. Postmenopausal. Encounter for screening for osteoporosis. TECHNIQUE: An axial (e.g., hips, spine) and/or appendicular (e.g., radius) exam was performed, as appropriate, using Guvera densitometer. Images are obtained for bone mineral [...] (e.g., radius)exam was performed, as appropriate, using Guvera densitometer.Images are obtained for bone mineral density [...] or haveadditional risk factors. Electronically signed by: Jogre Clayton DO 05/15/2024 01:07 PM [facility] RPWorkstation: [id number] Cheryl Das APRN IM DXA ORDERABLES from Last 3 Months Care Teams Animal Warden Relationship Specialty Start Date End Date Lalita Yeung MD [address] [place] [address] PCP - General Hospitalist 03/24/23
--- OUTSIDE RECORDS SUMMARY | 2024-07-22 15:33 | XMS_ITS | Encounter Summary ---
Author Organization [employer] [facility] Address [address] [place] [address] Care Team Providers Care Box Press Operator Name Role Phone Aneesh Lemons MD Primary Care Provider [phone] Encounter Details Date Type Department Care Team (Late st Contact Info) Description 12/27/2006 Outpatient Historical [facility] [place] Aneesh Dennis MD [address] [place] [address] Social History Tobacco Use Types Packs/Day Years Used Date Smoking Tobacco: Never Assessed Comments Unknown Sex and Gender Information Value Date Recorded Sex Assigned at Not on file Legal Sex Female 3:10 AM SPRING COVERER Gender Identity Not on file Sexual Orientation Not on file documented as of this encounter Plan of Treatment Not on file documented as of this encounter Visit Diagnoses Not on filedocumented in this encounter Care Teams Box Press Operator Relationship Specialty Start Date End Date Aneesh Lemons MD [address] [place] [address] PCP - General 03/27/08 documented as of this encounter
--- OUTSIDE RECORDS SUMMARY | 2024-07-22 15:33 | XMS_ITS | Encounter Summary ---
Author Organization [email or web address] Address [address] [place] [address] Care Team Providers Care Treatment Supervisor Name Role Phone Unavailable Primary Care [...] on file Legal Sex Female 1:17 AM DEFECT CUTTER Gender Identity Not on file Sexual Orientation Not on file documented as of this encounter Plan of Treatment Not on file documented as of this encounter Visit Diagnoses Not on filedocumented in this encounter
--- OUTSIDE RECORDS SUMMARY | 2024-07-22 15:33 | XMS_ITS | Encounter Summary ---
Author Organization [employer] Address [address] [place] [address] Care Team Providers Care Skilled Laborer Name Role Phone Lalita Yeung MD Primary Care Provider [phone] Encounter Details Date Type Department Care Team (Late Contact Info) Description 03/27/2023 Scanned Document LALITA YEUNG MD [address] [address] [place] [address] Lalita Yeung MD [address] [facility] [address] [place] [address] Social History Tobacco Use Types [...] (Late Contact Info) Description 04/07/2025 8:00 AM MILKING WORKER Office Visit LALITA YEUNG MD [address] [facility] [address] [place] [address] Das, Cheryl T, DRAMA THERAPIST [address] [place] [address] documented as of this encounter Visit Diagnoses Not on filedocumented in this encounter Care Teams Skilled Laborer Relationship Specialty Start Date End Date Lalita Yeung MD [address] [place] [address] PCP - General Hospitalist 03/24/23 documented as of this encounter
--- OUTSIDE RECORDS SUMMARY | 2024-07-22 15:33 | XMS_ITS | Encounter Summary ---
Author Organization [employer] [facility] Address [address] [place] [address] Care Team Providers Care Electronic Scale Subassembler Name Role Phone Aneesh Lemons MD Primary Care Provider Lalita Yeung MD Primary Care Provider + [phone] Encounter Details Date Type Department Care Team (Late st Contact Info) Description 08/06/2019 Scanned Document [facility] Bariatric Surgery [address] [place] [address] Nathan Tate MD [address] [place] [address] Social History Tobacco Use Types Packs/Day Years Used Date Smoking Tobacco: Never Assessed Sex and Gender Information Value Date Recorded Sex Assigned at Not on file Gender Identity Not on file Sexual Orientation Not on file documented as of this encounter Plan of Treatment Upcoming Encounters Date Type Department Care Team (Late st Contact Info) Description 04/07/2025 8:00 AM PROCESS COORDINATOR Office Visit LALITA YEUNG MD [address] [address] Cheryl Das APRN [address] [address] documented as of this encounter Visit Diagnoses Not on filedocumented in this encounter Care Teams Electronic Scale Subassembler Relationship Specialty Start Date End Date Aneesh Lemons MD PCP - General Family Medicine 10/03/19 03/23/23 Lalita Yeung MD [address] [place] [address] PCP - General Hospitalist 03/24/23 documented as of this encounter
--- OUTSIDE RECORDS SUMMARY | 2024-07-22 15:34 | XMS_ITS | Clinical Summary ---
Author Organization [facility] Address [address] [place] [address] Phone Care Team Providers Care Manager Production Name Role Phone Unavailable Primary Care Provider [...] on file Legal Sex Female 1:17 AM ACCOUNT UNDERWRITER Gender Identity Not on file Sexual Orientation [...]
--- OUTSIDE RECORDS SUMMARY | 2024-07-22 15:34 | XMS_ITS | Encounter Summary ---
Author Organization [employer] [facility] Address [address] [place] [address] Care Team Providers Care Solar Installer Name Role Phone Aneesh Lemons MD Primary Care Provider [phone] Encounter Details Date Type Department Care Team (Late st Contact Info) Description 10/20/2009 Inpatient Historical [facility] Aneesh Lemons MD [address] [place] [address] Social History Tobacco Use Types Packs/Day Years Used Date Smoking Tobacco: Never Alcohol Use Standard Drinks/Week Comments No 0 (1 standard drink = 0.6 oz pur e alcohol) Comments No Sex and Gender Information Value Date Recorded Sex Assigned at Not on file Legal Sex Female 3:10 AM SLICING MACHINE OPERATOR/TENDER Gender Identity Not on file Sexual Orientation Not on file documented as of this encounter Plan of Treatment Not on file documented as of this encounter Visit Diagnoses Not on filedocumented in this encounter Care Teams Solar Installer Relationship Specialty Start Date End Date Aneesh Lemons MD [address] [place] [address] PCP - General 03/27/08 documented as of this encounter
[2024-07-22] MEDS: AMPICILLIN/SULBACTAM 3 GM in 0.9 % SODIUM CHLORIDE Mini-bag 100 ML IVPB (15:45)
--- NOTE | 2024-07-22 16:03 | ED.SKABFB ---
HPI - Skin/Abscess/Foreign Bdy General Date Seen: 07/22/24 Chief complaint: Skin/Abscess/Foreign Body Stated complaint: Bite on left hand Time Seen by Provider: 07/22/24 15:13 Source: patient Mode of arrival: ambulatory Limitations: no limitations History of Present Illness HPI narrative: Patient is a 54-year-old female presenting for concern for FX into the dorsal aspect of her left hand. She states she 1st noticed some itching to the back of the hand yesterday and then today noticed it was swollen and noticed a mild erythematous line going up the arm. States it is mildly painful but she is able to make a fist. Is warm to the touch. She went to urgent care for evaluation the was sent to the emergency department. States she may have been bit by something but does not know for sure. Denies fevers, chills, weakness, numbness, headache, chest pain, lightheadedness, dizziness, abdominal pain, nausea. States she feels asymptomatic other than mild pain back of her left hand. Has full range of motion of the hand. Related Data Home Medications ?Medication ?Instructions ?Recorded ?Confirmed escitalopram oxalate 10 mg tablet 10 mg PO DAILY 07/22/24 07/22/24 Previous Rx's ?Medication ?Instructions ?Recorded amoxicillin 875 mg-potassium 1 tab PO BID #10 tabs 07/22/24 clavulanate 125 mg tablet Allergies Allergy/AdvReac Type Severity Reaction Status Date / Time demora Allergy Uncoded 07/22/24 13:30 Review of Systems Status of ROS: Reports: 10 or more systems reviewed and unremarkable except as noted in History and below Exam Narrative: Exam Narrative: Const: Well-nourished, Well-developed, in no distress Eyes: PERRL, no conjunctival injection, and symmetrical lids HENT: Atraumatic external nose and ears. Moist mucous membranes. Neck: Symmetric, trachea midline, No thyromegaly. CVS: RRR, No murmurs or gallops. Peripheral pulses 2+ and equal in all extremities RESP: Unlabored respiratory effort. Clear to auscultation bilaterally. GI: Nontender/Nondistended, No rebound or guarding. MSK:Extremities w/o deformity, Normal Active ROM Skin: Mild swelling to the dorsal aspect of the left hand with no finger involvement. There is a very faint streak few female a going have for upper forearm. There is can some erythema to the back of the hand with a small area appears to either be a scratch or possible bug bite. Neuro: Normal Muscle tone, No focal neurological deficits. Psych: Awake, Alert, & Oriented x3. Appropriate mood and affect. Const: Vital Signs, click to edit/add: Vital Signs - 24 hr 07/22/24 13:25 Temperature 98.5 F Pulse Rate [Pulse Oximeter] 73 Respiratory Rate 18 Blood Pressure [Ri ght Upper Arm] 160/91 H Pulse Oximetry 98 Oxygen Delivery Me thod Room Air Course Vital Signs Vital signs: Initial Vital Signs Temperature 98.5 F 07/22/24 13:25 Temperature Source Temporal Artery Scan 07/22/24 13:25 Pulse Rate 73 07/22/24 13:25 Respiratory Rate 18 07/22/24 13:25 Blood Pressure 160/91 H 07/22/24 13:25 Blood Pressure Mean 114 H 07/22/24 13:25 Blood Pressure Position Sitting 07/22/24 13:25 Pulse Oximetry 98 07/22/24 13:25 Oxygen Delivery Method Room Air 07/22/24 13:25 Vital Signs Temperature 98.5 F 07/22/24 13:25 Pulse Rate 73 07/22/24 13:25 Respiratory Rate 18 07/22/24 13:25 Blood Pressure 160/91 H 07/22/24 13:25 Pulse Oximetry 98 07/22/24 13:25 Oxygen Delivery Method Room Air 07/22/24 13:25 Temperature 98.5 F 07/22/24 13:25 Pulse Rate 73 07/22/24 13:25 Respiratory Rate 18 07/22/24 13:25 Blood Pressure 160/91 H 07/22/24 13:25 Pulse Oximetry 98 07/22/24 13:25 Oxygen Delivery Method Room Air 07/22/24 13:25 Medications Administered Medications: Discontinued Medications Generic Name Dose Route Start Last Admin Trade Name Freq PRN Reason Stop Dose Admin Ampicillin Sodium/Sulbactam 100 mls @ 200 mls/hr 07/22/24 15:25 07/22/24 15:45 Sodium 3 gm/ Sodium Chloride IVPB 07/22/24 15:26 200 mls/hr ONCE ONE Administration MDM - Skin/Abscess/Foreign Bdy MDM Narrative Medical decision making narrative: Patient is a 54-year-old female presenting for left hand swelling. She is having no finger involvement. No signs of flexor tenosynovitis. Has full range of motion of the hand. At this time I believe she is safe for discharge but will give her a dose of her both he and his still in IV prior to discharge. I within discharged home on Augmentin. And form due to the have close return precautions to make sure the infection is not spreading. She is agreeable to this plan. Discharge Plan Discharge Clinical Impression: Cellulitis Qualifiers: Site of cellulitis: extremity Site of cellulitis of extremity: upper extremity Laterality: left Qualified Code(s): L03.114 - Cellulitis of left upper limb Patient Disposition: Home, Self-Care Condition: Stable Instructions: Cellulitis (ED) Additional Instructions: If you develop any of the following signs called Kanavel's Signs it could be a sign of flexor tenosynovitis and is an emergency that you need to return to emergency department immediately -Pain with passive extension (often the first sign seen) -Percussion tenderness (tenderness over entire length of flexor tendon sheath) -Uniform swelling (symmetric finger swelling along length of the tendon sheath) -Flexion posture (flexed posture of involved digit at rest to minimize pain) Also return if the infection continues to spread. Prescriptions: New amoxicillin-pot clavulanate 875-125 mg tablet 1 tab PO BID Qty: 10 0RF No Action escitalopram oxalate 10 mg tablet 10 mg PO DAILY Follow Up/Referrals: Provider,Not a Local [Primary Care Provider] - Stand Alone Forms: MyHealth Info Instructions
== END 2024-07-22 16:25 | disposition home or self-care (01) ==
PROVIDERS: Emergency Provider Student in an Organized Health Care Education/Training Program
DX: L03.114 Cellulitis of left upper limb (principal)
CPT/HCPCS: 96365; 99283; J0295